=== PATIENT | female | born 1980 | race Caucasian/White ===

== ENCOUNTER 2020-04-02 18:24 | Emergency (ER) | payer SELFPAY ==
--- OUTSIDE RECORDS SUMMARY | 2020-04-02 18:25 | XMS REPORT | Continuity of Care Document ---
:1980 Author Organization [facility] t Address [address] [place] [address] Dr. Galloway. [address] [place] [address] Care Team Providers Name Role Phone Ewa Mcdonald DO Attending Clinician Problems This patient has no known problems. Allergies, Adverse Reactions, Alerts This patient has no known allergies or adverse reactions. Medications This patient has no known medications. Procedures This patient has no known procedures. Encounters Start End Encounter Admission Attending Care Care Encounter Source Date/Time Date/Time Type Type Clinicians Facility Department ID 2019-09-17 2019-09-17 Emergency TAVO Mcdonald [id number] 19:58:41 21:55:00 Ewa Clark [id number] [place] [id number] [place] [id number] [id number] Results This patient has no known results.
[2020-04-02 20:02] LABS: Absolute Lymphocytes (CBC) 2.1 K/uL (0.7-4.9); Basophils % 0.5 % (0-1.3); Hematocrit 33.5 % (36.0-45.0); Lymphocytes % 24.9 % (15.3-44.8); MPV 7.6 fL (7.6-11.3); RBC Red Blood Cell Count 4.22 M/uL (3.86-4.86)
[2020-04-02] MEDS ORDERED: NA CHLORIDE 0.9% 1,000 ML ONE (20:06)
[2020-04-02 20:07] LABS: Urine Blood NEGATIVE (NEG); Urine Glucose NEGATIVE (NEG); Urine Protein NEGATIVE (NEG); Urine Specific Gravity >1.030 (1.005-1.030); Urine pH 5.5 (5.0-7.0)
[2020-04-02 20:19] LABS: ALT/SGPT 21 U/L (12-78); AST/SGOT 8 U/L (15-37); Albumin 3.6 g/dL (3.4-5.0); Alkaline Phosphatase 145 U/L (45-117); BUN Blood Urea Nitrogen 12 mg/dL (7-18); Bicarbonate 25 mmol/L (21-32); Bilirubin Direct < 0.1 mg/dL (0-0.2); Bilirubin Total 0.3 mg/dL (0.2-1.0); Glucose Level 94 mg/dL (74-106); Lipase 69 U/L (73-393); Potassium 3.9 mmol/L (3.5-5.1); Protein, Total 7.4 g/dL (6.4-8.2); Sodium Level 139 mmol/L (136-145)
[2020-04-02 20:38] LABS: Urine Bacteria 20-50 /HPF (<20); Urine Culture Reflex Order REFLEXED; Urine Mucus MOD /HPF (NONE SEEN); Urine RBC NONE SEEN /HPF (NONE SEEN)
--- NOTE | 2020-04-02 21:18 | RAD REPORT ---
EXAM DESCRIPTION: CT - Abdomen Pelvis W Contrast - 04/02/2020 8:37 pm CLINICAL HISTORY: ABD PAIN, left flank pain COMPARISON: CT ABD PELVIS W CONTRAST dated 03/30/2010 TECHNIQUE: Biphasic, helical CT imaging of the abdomen and pelvis was performed following 100 ml non -ionic IV contrast. No oral contrast given. All CT scans are performed using dose optimization technique as appropriate and may include automated exposure control or mA/KV adjustment according to patient size. FINDINGS: No suspicious findings in the lung bases. The liver, spleen, and pancreas show no suspicious findings. Gallbladder and biliary tree are also wi thout suspicious finding. Symmetric renal function is seen with no hydronephrosis or suspicious renal mass. No pyelonephritis o r acute parenchymal process. No bladder abnormalities. No adrenal abnormalities. Contracted urinary b ladder shows no suspicious finding. Uterus and ovaries show no suspicious findings. No gastric dilatation or wall thickening. No acute small bowel finding. Appendectomy clips are presen t. A 4- 5 centimeter long segment of the descending colon shows wall thickening and edema. There is s tranding in the adjacent fat. Minimal diverticulosis present in the left side colon. No free air or pneumatosis. No extravasation of bowel content. No hernia, mass or bulky lymphadenopathy. No suspicious bony findings. IMPRESSION: Nonspecific descending colon colitis or diverticulitis. No abscess, free air or surgically emergent finding.
--- NOTE | 2020-04-02 21:48 | ER ---
Nurse's Notes [facility] Name: Shani Valente Age: 39 yrs Sex: Female : 1980 Arrival Date: 04/02/2020 Time: 18:27 Bed 5 Private MD: Diagnosis: Descending colon colitis/ diverticulitis Presentation: 04/02 18:48 Chief complaint: Patient states: left flank pain since yesterday radiating to iw suprapubic area, denies urinary s/s, pain aggravated by taking a deep breath , hx of kidney stones this feels different, +nausea, no vomiting or diarrhea. Coronavirus screen: At this time, the client does not indicate any symptoms associated with coronavirus-19. Ebola Screen: Patient negative for fever greater than or equal to 101.5 degrees Fahrenheit, and additional compatible Ebola Virus Disease symptoms Patient denies exposure to infectious person. Patient denies travel to an Ebola-affected area in the 21 days before illness onset. No symptoms or risks identified at this time. Initial Sepsis Screen: Does the patient meet any 2 criteria? No. Patient's initial sepsis screen is negative. Does the patient have a suspected source of infection? No. Patient's initial sepsis screen is negative. Risk Assessment: Do you want to hurt yourself or someone else? Patient reports no desire to harm self or others. Onset of symptoms was April 01, 2020. 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 - Social history:: Smoking status: Patient denies any tobacco usage or history of. Screenin:30 Abuse screen: Denies threats or abuse. Denies injuries from another. Nutritional lp1 screening: No deficits noted. Tuberculosis screening: No symptoms or risk factors identified. Fall Risk None identified. Assessment: 19:15 General: Appears in no apparent distress. Behavior is calm, cooperative, appropriate lp1 for age. Pain: Complains of pain in left lower quadrant Pain currently is 6 out of 10 on a pain scale. Quality of pain is described as aching, sharp. Neuro: Level of Consciousness is awake, alert, obeys commands, Oriented to person, place, time, situation. Cardiovascular: Patient's skin is warm and dry. Respiratory: Respiratory effort is even, unlabored, Breath sounds are clear bilaterally. GI: Abdomen is non-distended, Bowel sounds present X 4 quads. Abdomen is tender to palpation in left lower quadrant Patient currently denies constipation, diarrhea. : No signs and/or symptoms were reported regarding the genitourinary system. EENT: No signs and/or symptoms were reported regarding the EENT system. Derm: Skin is pink, warm \T\ dry. Musculoskeletal: No deficits noted. 21:59 Reassessment: Patient is alert, oriented x 3, equal unlabored respirations, skin bb warm/dry/pink. pt verbalized understanding of and agrees to plan of care discharge instructions given pt ambulated with steady gait to exit accompanied by family. Vital Signs: 18:48 BP 130 / 70; Pulse 97; Resp 16; Temp 98.6; Pulse Ox 100% on R/A; Weight 108.86 kg; iw Height 5 ft. 9 in. (175.26 cm); Pain 10/10; 22:01 BP 110 / 75; Pulse 80; Resp 18; Temp 98.5; Pulse Ox 100% ; rv 18:48 Body Mass Index 35.44 (108.86 kg, 175.26 cm) iw ED Course: 18:27 Patient arrived in ED. mr 18:50 Triage completed. iw 18:51 Arm band placed on. iw 19:08 Alex Lee MD is Attending Physician. pkl 19:23 Jacqueline Arredondo, YAEL is Primary Nurse. lp1 19:30 Patient has correct armband on for positive identification. Placed in gown. Pulse ox lp1 on. NIBP on. 19:45 Inserted saline lock: 20 gauge in left antecubital area, using aseptic technique. Blood lp1 collected. 21:59 No provider procedures requiring assistance completed. lp1 22:01 IV discontinued, intact, bleeding controlled, No redness/swelling at site. Pressure bb dressing applied. Administered Medications: 19:56 Drug: NS 0.9% 1000 ml Route: IV; Rate: 1000 ml; Site: left antecubital; lp1 21:59 Follow up: IV Status: Completed infusion; IV Intake: 1000ml rv 21:56 Drug: Cipro 500 mg Route: PO; bb 22:00 Follow up: Response: Medication administered at discharge. rv 21:56 Drug: Flagyl 500 mg Route: PO; bb 22:00 Follow up: Response: Medication administered at discharge. rv 22:00 Not Given (Patient Refused): morphine 4 mg IVP once; RASS on ADMIN: Combtv4, Very rv Agttd3, Agttd2, Rstlss1, AlertClm0, Drwsy-1, Lt Sdtn-2, Mod Sdtn-3, Dp Sdtn-4, UnArsble-5 22:00 Not Given (Patient Refused): Zofran (Ondansetron) 4 mg IVP once; over 2 minutes rv Intake: 21:59 IV: 1000ml; Total: 1000ml. rv Outcome: 21:48 Discharge ordered by . pkcinthia 22:00 Discharged to home ambulatory, with family. rv 22:00 Condition: good 22:01 Discharge instructions given to patient, Instructed on discharge instructions, follow bb up and referral plans. medication usage, Demonstrated understanding of instructions, follow-up care, medications, Prescriptions given X 2. 22:01 Discharge instructions given to patient, Instructed on discharge instructions, follow rv up and referral plans. medication usage, Demonstrated understanding of instructions, follow-up care, medications, Prescriptions given X 2. 22:01 Patient left the ED. bb Signatures: Alex Lee MD MD pkl Rivera, Mary mr Ballard, Brenda RN RN bb Mima Mcdonald, YAEL CONLEY Jacqueline Arredondo, YAEL RN lp1 Sony Ernandez RN RN rv
--- NOTE | 2020-04-02 21:48 | EDPHYS ---
Physician Documentation [facility] Name: Shani Valente Age: 39 yrs Sex: Female : 1980 Arrival Date: 04/02/2020 Time: 18:27 Bed 5 Private MD: ED Physician Alex Lee HPI: 04/02 19:42 This 39 yrs old Female presents to ER via Ambulatory with complaints of pkl Abdominal Pain. 19:42 The patient presents with abdominal pain in the left upper quadrant. Onset: The pkl symptoms/episode began/occurred yesterday. The symptoms radiate to Umbilicus. Associated signs and symptoms: Pertinent positives: nausea. 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 - Social history:: Smoking status: Patient denies any tobacco usage or history of. ROS: 19:42 Eyes: Negative for injury, pain, redness, and discharge, ENT: Negative for injury, pkl pain, and discharge, Neck: Negative for injury, pain, and swelling, Cardiovascular: Negative for chest pain, palpitations, and edema, Respiratory: Negative for shortness of breath, cough, wheezing, and pleuritic chest pain. 19:42 Abdomen/GI: Positive for abdominal pain, of the left upper quadrant. 19:42 Back: Negative for pain at rest. 19:42 : Negative for urinary symptoms. 19:42 MS/extremity: Negative for acute changes. 19:42 Skin: Negative for rash. 19:42 Neuro: Negative for altered mental status. Exam: 19:42 Head/Face: Normocephalic, atraumatic. Eyes: Pupils equal round and reactive to light, pkl extra-ocular motions intact. Lids and lashes normal. Conjunctiva and sclera are non-icteric and not injected. Cornea within normal limits. Periorbital areas with no swelling, redness, or edema. ENT: Nares patent. No nasal discharge, no septal abnormalities noted. Tympanic membranes are normal and external auditory canals are clear. Oropharynx with no redness, swelling, or masses, exudates, or evidence of obstruction, uvula midline. Mucous membranes moist. Neck: Trachea midline, no thyromegaly or masses palpated, and no cervical lymphadenopathy. Supple, full range of motion without nuchal rigidity, or vertebral point tenderness. No Meningismus. Chest/axilla: Normal chest wall appearance and motion. Nontender with no deformity. No lesions are appreciated. Cardiovascular: Regular rate and rhythm with a normal S1 and S2. No gallops, murmurs, or rubs. Normal PMI, no JVD. No pulse deficits. Respiratory: Lungs have equal breath sounds bilaterally, clear to auscultation and percussion. No rales, rhonchi or wheezes noted. No increased work of breathing, no retractions or nasal flaring. 19:42 Abdomen/GI: Bowel sounds: normal, Palpation: soft, mild abdominal tenderness, in the left upper quadrant. 19:42 Back: Exam negative for acute changes. 19:42 : Exam negative for acute changes. 19:42 Musculoskeletal/extremity: Exam is negative for acute changes. 19:42 Skin: Exam negative for rash. 19:42 Neuro: Orientation: is normal, Mentation: is normal, Cranial nerves: grossly normal, Motor: is normal. Vital Signs: 18:48 BP 130 / 70; Pulse 97; Resp 16; Temp 98.6; Pulse Ox 100% on R/A; Weight 108.86 kg; iw Height 5 ft. 9 in. (175.26 cm); Pain 10/10; 22:01 BP 110 / 75; Pulse 80; Resp 18; Temp 98.5; Pulse Ox 100% ; rv 18:48 Body Mass Index 35.44 (108.86 kg, 175.26 cm) iw MDM: 19:08 Patient medically screened. pkl 21:43 Data reviewed: vital signs, nurses notes, lab test result(s), radiologic studies, CT pkl scan. ED course: Discussed lab. and CT Scan results with patient. Advised to follow up with [facility] in 2 to 3 days. Return if symptoms are worse. Patient understood instructions. 04/02 19:34 Order name: Urine Culture [facility] 04/02 19:34 Order name: Urine Dipstick--Ancillary (enter results) [facility] 04/02 19:34 Order name: Urine --Ancillary (enter results) 2 04/02 19:34 Order name: Urine Microscopic Only 2 04/02 19:40 Order name: Basic Metabolic Panel [facility] 04/02 19:40 Order name: CBC with Diff pk 04/02 19:40 Order name: Hepatic Function pk 04/02 19:40 Order name: Lipase pk 04/02 20:04 Order name: CBC with Automated Diff; Complete Time: 21:13 EDMS 04/02 20:07 Order name: Urine --Ancillary; Complete Time: 21:13 EDMS 04/02 20:07 Order name: Urine Dipstick-Ancillary; Complete Time: 21:13 EDMS 04/02 20:19 Order name: Basic Metabolic Panel; Complete Time: 21:13 EDMS 04/02 20:19 Order name: Liver (Hepatic) Function; Complete Time: 21:13 EDMS 04/02 20:19 Order name: Lipase; Complete Time: 21:13 EDMS 04/02 19:27 Order name: Urine Dipstick-Ancillary (obtain specimen); Complete Time: 19:38 1 04/02 19:27 Order name: Urine Test (obtain specimen); Complete Time: 19:38 1 04/02 19:40 Order name: IV Saline Lock; Complete Time: 19:56 pk 04/02 19:40 Order name: Labs collected and sent; Complete Time: 19:56 [facility] 04/02 19:41 Order name: CT Abd/Pelvis - IV Contrast Only [facility] 04/02 20:39 Order name: Urine Microscopic Only; Complete Time: 21:13 EDMS 04/02 21:19 Order name: CT; Complete Time: 21:37 EDMS Administered Medications: 19:56 Drug: NS 0.9% 1000 ml Route: IV; Rate: 1000 ml; Site: left antecubital; lp1 21:59 Follow up: IV Status: Completed infusion; IV Intake: 1000ml rv 21:56 Drug: Cipro 500 mg Route: PO; bb 22:00 Follow up: Response: Medication administered at discharge. rv 21:56 Drug: Flagyl 500 mg Route: PO; bb 22:00 Follow up: Response: Medication administered at discharge. rv 22:00 Not Given (Patient Refused): morphine 4 mg IVP once; RASS on ADMIN: Combtv4, Very rv Agttd3, Agttd2, Rstlss1, AlertClm0, Drwsy-1, Lt Sdtn-2, Mod Sdtn-3, Dp Sdtn-4, UnArsble-5 22:00 Not Given (Patient Refused): Zofran (Ondansetron) 4 mg IVP once; over 2 minutes rv Disposition: 04/02/20 21:48 Discharged to Home. Impression: Descending colon colitis/ diverticulitis. - Condition is Stable. - Prescriptions for Flagyl 500 mg Oral Tablet - take 1 tablet by ORAL route every 8 hours for 10 days; 30 tablet. Cipro 500 mg Oral Tablet - take 1 tablet by ORAL route every 12 hours for 7 days; 14 tablet. - Medication Reconciliation Form, Thank You Letter, Antibiotic Education, Prescription Opioid Use form. - Follow up: Private Physician; When: 2 - 3 days; Reason: Re-evaluation by your physician. - Problem is new. - Symptoms have improved. Signatures: Dispatcher [employer] EDMS Alex Lee MD MD pkl Liv De Paz RN RN Mima Pastrana RN RN iw Jacqueline Arredondo RN RN lp1 Sony Ernandez RN rv Corrections: (The following items were deleted from the chart) 22:01 21:48 04/02/2020 21:48 Discharged to Home. Impression: Descending colon colitis/ bb diverticulitis. Condition is Stable. Forms are Medication Reconciliation Form, Thank You Letter, Antibiotic Education, Prescription Opioid Use. Follow up: Private Physician; When: 2 - 3 days; Reason: Re-evaluation by your physician. Problem is new. Symptoms have improved. pkl
[2020-04-02] MEDS ORDERED: metroNIDAZOLE 500 MG TABLET ONE (22:10)
[2020-04-02] MEDS ORDERED: CIPROFLOXACIN HCL 500 MG TAB ONE (22:11)
[2020-04-02 22:16] VITALS: O2SAT 100
[2020-04-02 22:18] VITALS: BP 110/75; TEMP 98.5
== END 2020-04-02 22:01 | disposition home or self-care (01) ==
LOC: ER 18:24
DX: K52.9 Noninfective gastroenteritis and colitis, unspecified (principal); K57.32 Diverticulitis of large intestine without perforation or abscess without bleeding; G40.909 Epilepsy, unspecified, not intractable, without status epilepticus
CPT/HCPCS: 36415; 74177; 80048; 80076; 81003; 81015; 81025; 83690; 85025; 87086; 87088; 96360; 96361; 99284; J7030; Q9967

== ENCOUNTER 2021-03-05 07:16 | Emergency (ER) | payer SELFPAY ==
--- OUTSIDE RECORDS SUMMARY | 2021-03-05 07:19 | XMS REPORT | Continuity of Care Document ---
:1980 Author Organization [facility] t Address [address] [place] [address] Dr. Galloway. [address] [place] [address] Care Team Providers Name Role Phone Clark Mcdonald DO Attending Clinician Problems This patient has no known problems. Allergies, Adverse Reactions, Alerts This patient has no known allergies or adverse reactions. Medications This patient has no known medications. Procedures This patient has no known procedures. Encounters Start End Encounter Admission Attending Care Care Encounter Source Date/Time Date/Time Type Type Clinicians Facility Department ID 2019-09-17 2019-09-17 Emergency [facility] [id number] 19:58:41 21:55:00 Ewa Clark [id number] [place] [id number] [place] [id number] Results This patient has no known results.
--- NOTE | 2021-03-05 11:53 | EDPHYS ---
Physician Documentation [facility] Name: Shani Valente Age: 40 yrs Sex: Female : 1980 Arrival Date: 03/05/2021 Time: 07:17 Bed 12 Private MD: Luis Enrique Arce T ED Physician Evan Barraza HPI: 03/05 11:47 This 40 yrs old Female presents to ER via Ambulatory with complaints of taisha Headache, Dizziness, Sore Throat, Runny Nose. 11:47 The patient complains of pain to the top of head, forehead, left frontal area, left taisha side of the back of head, left occipital area, left base of the skull, right frontal area, right side of the back of head, right occipital area and right base of the skull. The patient describes the headache as aching. Onset: The symptoms/episode began/occurred 2 day(s) ago. Associated signs and symptoms: The patient has no apparent associated signs or symptoms. Severity of symptoms: At its worst the pain was mild. Headache History: The patient has had previous headaches and this one is similar to previous episodes. [employer]: 09:45 1, Full Term 1, Living 1, LMP 03/05/2021 kh Historical: - Allergies: 07:38 No Known Allergies; hb - Home Meds: 07:38 Lamictal 200 mg Oral tab 2 times per day [Active]; hb - PMHx: 07:38 Seizures; hb - Immunization history:: Adult Immunizations up to date. - Social history:: Patient/guardian denies using alcohol, street drugs. ROS: 11:49 Constitutional: Negative for fever, chills, and weight loss, Eyes: Negative for injury, taisha pain, redness, and discharge, Neck: Negative for injury, pain, and swelling, Cardiovascular: Negative for chest pain, palpitations, and edema, Respiratory: Negative for shortness of breath, cough, wheezing, and pleuritic chest pain, Abdomen/GI: Negative for abdominal pain, nausea, vomiting, diarrhea, and constipation, Back: Negative for injury and pain, : Negative for injury, bleeding, discharge, and swelling, MS/Extremity: Negative for injury and deformity, Skin: Negative for injury, rash, and discoloration, Neuro: Negative for headache, weakness, numbness, tingling, and seizure. 11:49 ENT: Positive for rhinorrhea, sinus congestion, sore throat. Exam: 11:49 Constitutional: This is a well developed, well nourished patient who is awake, alert, taisha and in no acute distress. Head/Face: Normocephalic, atraumatic. Eyes: Pupils equal round and reactive to light, extra-ocular motions intact. Lids and lashes normal. Conjunctiva and sclera are non-icteric and not injected. Cornea within normal limits. Periorbital areas with no swelling, redness, or edema. Neck: Trachea midline, no thyromegaly or masses palpated, and no cervical lymphadenopathy. Supple, full range of motion without nuchal rigidity, or vertebral point tenderness. No Meningismus. Chest/axilla: Normal chest wall appearance and motion. Nontender with no deformity. No lesions are appreciated. Cardiovascular: Regular rate and rhythm with a normal S1 and S2. No gallops, murmurs, or rubs. Normal PMI, no JVD. No pulse deficits. Respiratory: Lungs have equal breath sounds bilaterally, clear to auscultation and percussion. No rales, rhonchi or wheezes noted. No increased work of breathing, no retractions or nasal flaring. Abdomen/GI: Soft, non-tender, with normal bowel sounds. No distension or tympany. No guarding or rebound. No evidence of tenderness throughout. Back: No spinal tenderness. No costovertebral tenderness. Full range of motion. Skin: Warm, dry with normal turgor. Normal color with no rashes, no lesions, and no evidence of cellulitis. MS/ Extremity: Pulses equal, no cyanosis. Neurovascular intact. Full, normal range of motion. Neuro: Awake and alert, GCS 15, oriented to person, place, time, and situation. Cranial nerves II-XII grossly intact. Motor strength 5/5 in all extremities. Sensory grossly intact. Cerebellar exam normal. Normal gait. 11:49 ENT: Posterior pharynx: Tonsils: are normal in appearance, Uvula: normal, swelling, is not appreciated, erythema, that is mild, exudate, is not appreciated. Vital Signs: 07:36 BP 141 / 94; Pulse 92; Resp 16; Temp 98.2; Pulse Ox 99% on R/A; Weight 106.59 kg; hb Height 5 ft. 9 in. (175.26 cm); Pain 8/10; 09:45 BP 111 / 68; Pulse 83; Resp 20; Temp 98.9(TE); Pulse Ox 96% on R/A; kh1 12:50 BP 136 / 84; Pulse 69; Resp 20; Temp 97.1; Pulse Ox 98% on R/A; kh1 07:36 Body Mass Index 34.70 (106.59 kg, 175.26 cm) hb Devna Coma Score: 11:50 Eye Response: spontaneous(4). Verbal Response: oriented(5). Motor Response: obeys [facility] commands(6). Total: 15. MDM: 09:45 Patient medically screened. taisha 11:50 Antibiotic administration: The patient is discharged and will get outpatient [facility] antibiotics, Zithromax. Differential diagnosis: bronchitis, flu, otitis, sinusitis. Data reviewed: vital signs, nurses notes, lab test result(s). Data interpreted: monitor and storage bin tender: rate is 96 beats/min, rhythm is regular, Pulse oximetry: on room air. Test interpretation: by ED physician or midlevel provider:. Counseling: I had a detailed discussion with the patient and/or guardian regarding: the historical points, exam findings, and any diagnostic results supporting the discharge/admit diagnosis, lab results. 03/05 11:41 Order name: Flu [facility] 03/05 11:41 Order name: Strep [facility] 03/05 13:00 Order name: Throat Culture EDND 03/05 13:24 Order name: COVID-19/FLU A+B ED[facility] Administered Medications: 12:45 Drug: predniSONE 40 mg Route: PO; kh1 12:53 Drug: Zithromax (azithromycin) 500 mg Route: PO; kh1 Disposition Summary: 03/05/21 11:52 Discharge Ordered Location: Home [facility] Problem: new [facility] Symptoms: have improved taisha Condition: Stable taisha Diagnosis - Acute upper respiratory infection, unspecified taisha - Acute pharyngitis, unspecified taisha Followup: taisha - With: Luis Enrique Arce MD - When: 2 - 3 days - Reason: Recheck today's complaints, Continuance of care, Re-evaluation by your physician Discharge Instructions: - Discharge Summary Sheet taisha - Pharyngitis taisha - Sore Throat taisha - Strep Throat, Adult taisha - Cool Mist Vaporizer taisha - Upper Respiratory Infection, Adult, [id number] taisha - Cough, Adult [facility] Forms: - Medication Reconciliation Form [facility] - Thank You Letter taisha - Antibiotic Education [facility] - Prescription Opioid Use [facility] Prescriptions: - Prednisone 20 mg Oral Tablet - take 2 tablets by ORAL route once daily for 5 days; 10 tablet; Refills: 0, [facility] Product Selection Permitted - Zithromax 500 mg Oral Tablet - take 1 tablet by ORAL route once daily for 4 days; 4 tablet; Refills: 0, [facility] Product Selection Permitted Signatures: Dispatcher [employer] EDMS Evan Barraza MD MD cha Baxter, Heather, RN RN Maribell Gaviria 1 Corrections: (The following items were deleted from the chart) 12:24 11:42 CORONAVIRUS+MR.LAB.BRZ ordered. EDMS EDMS 12:25 11:42 Influenza Screen (A ordered. EDMS EDMS
--- NOTE | 2021-03-05 11:53 | ER ---
Nurse's Notes [facility] Name: Shani Valente Age: 40 yrs Sex: Female : 1980 Arrival Date: 03/05/2021 Time: 07:17 Bed 12 Private MD: Luis Enrique Arce T Diagnosis: Acute upper respiratory infection, unspecified;Acute pharyngitis, unspecified Presentation: 03/05 07:36 Chief complaint: Runny nose, headache, fatigue, decreased appetite, body, dizziness, hb and cough x 3 days. Coronavirus screen: Client presents with at least one sign or symptom that may indicate coronavirus-19. Standard/surgical mask placed on the client. Provider contacted for isolation considerations. Ebola Screen: No symptoms or risks identified at this time. Risk Assessment: Do you want to hurt yourself or someone else? Patient reports no desire to harm self or others. Onset of symptoms was March 02, 2021. 07:36 Method Of Arrival: Ambulatory 07:36 Acuity: YOBANY 4 hb Triage Assessment: 09:43 Headache History: Denies prior headaches. General: Appears in no apparent distress. kh1 comfortable, Behavior is calm, cooperative. Pain: Complains of pain in pelvis Pain currently is 8 out of 10 on a pain scale. Quality of pain is described as Pain began gradually, Also complains of no other associated symptoms. Neuro: No deficits noted. 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 - Social history:: Patient/guardian denies using alcohol, street drugs. Screenin:48 Abuse screen: Denies threats or abuse. Nutritional screening: No deficits noted. kh1 Tuberculosis screening: No symptoms or risk factors identified. Fall Risk None identified. Assessment: 09:47 Pain: Complains of pain in abdomen Pain does not radiate. Pain currently is 8 out of 10 kh1 on a pain scale. 12:51 General: Appears in no apparent distress. [facility] 12:52 Neuro: No deficits noted. Cardiovascular: No deficits noted. Respiratory: No deficits kh1 noted. GI: No deficits noted. : No deficits noted. Vital Signs: 07:36 BP 141 / 94; Pulse 92; Resp 16; Temp 98.2; Pulse Ox 99% on R/A; Weight 106.59 kg; hb Height 5 ft. 9 in. (175.26 cm); Pain 8/10; 09:45 BP 111 / 68; Pulse 83; Resp 20; Temp 98.9(TE); Pulse Ox 96% on R/A; kh1 12:50 BP 136 / 84; Pulse 69; Resp 20; Temp 97.1; Pulse Ox 98% on R/A; kh1 07:36 Body Mass Index 34.70 (106.59 kg, 175.26 cm) hb Vitals: 12:50 Cardiac Rhythm Assessment Regular. kh1 Devan Coma Score: 11:50 Eye Response: spontaneous(4). Verbal Response: oriented(5). Motor Response: obeys taisha commands(6). Total: 15. ED Course: 07:17 Patient arrived in ED. as 07:17 Luis Enrique Arce MD is Private Physician. as 07:38 Triage completed. 09:43 Maribell Gaviria is Primary Nurse. kh1 09:45 Evan Barraza MD is Attending Physician. taisha 09:45 Arm band placed on right wrist. kh1 11:52 Luis Enrique Arce MD is Referral Physician. taisha 12:01 Flu Sent. 1 12:01 Strep Sent. 1 Administered Medications: 12:45 Drug: predniSONE 40 mg Route: PO; 1 12:53 Drug: Zithromax (azithromycin) 500 mg Route: PO; 1 Outcome: 11:52 Discharge ordered by . taisha 13:36 Patient left the ED. iw Signatures: Evan Barraza MD MD cha Martinez, Amelia as Mima Mcdonald RN RN Mariza Saba RN RN Maribell Gaviria [facility] Corrections: (The following items were deleted from the chart) 12:24 12:01 CORONAVIRUS+MR.LAB.BRZ drawn and sent. [facility] EDMS 12:25 12:01 Influenza Screen (A drawn and sent. [facility] EDMS
[2021-03-05] MEDS ORDERED: AZITHROMYCIN 250 MG TAB ONE (12:30)
[2021-03-05] MEDS ORDERED: predniSONE 20 MG TAB ONE (12:31)
[2021-03-05 13:24] LABS: SARS-COV-2 RT PCR NEGATIVE (NEGATIVE)
[2021-03-05 13:44] VITALS: BP 136/84; TEMP 97.1; O2SAT 98
== END 2021-03-05 13:36 | disposition home or self-care (01) ==
LOC: ER 07:16
DX: J06.9 Acute upper respiratory infection, unspecified (principal); J02.9 Acute pharyngitis, unspecified; Z20.822 Contact with and (suspected) exposure to COVID-19
CPT/HCPCS: 0240U; 87070; 87081; 99283; J7512

== ENCOUNTER 2021-12-19 07:09 | Emergency (ER) | payer SELFPAY ==
--- OUTSIDE RECORDS SUMMARY | 2021-12-19 07:13 | XMS REPORT | Continuity of Care Document ---
:1980 Author Organization [facility] t Address [address] [place] [address] [address] [place] [address] Care Team Providers Name Role Phone Clark Reed DO Attending Clinician Payers Payer Name Policy Type Policy Number Effective Date Expiration Date S ource Problems Condition Condition Condition Status Onset Resolution Last Treating Co mments Source Name Details Category Date Date Treatment Clinician Date Obesity Obesity Disease Active 2015-07 Univers (BMI (BMI 2-02 ity of 30-39.9) 30-39.9) 00:00: [address] Branch Allergies, Adverse Reactions, Alerts Allergy Allergy Status Severity Reaction(s) Onset Inactive Treating Comm ents Source Name Type Date Date Clinician NO KNOWN Drug Active Univers ALLERGIE Class ity of [facility] Social History Social Habit Start Date Stop Date Quantity Comments [facility] Smoking Status Start Date Stop Date Source Unknown if ever smoked [facility]it y [facility] Medications Ordered Filled Start Stop Current Ordering Indication Dosage Frequency Signature Comments Components Source Medication Medication Date Date Medication? Clinician (SIG) Name Name diphenhydrA 2020-0 2020- No 25mg 25 mg, Uni vers MINE 3-14 -14 Slow IV ity of (BENADRYL) 02:45: 01:45 [place], [place] injection 00 :00 ONCE, 1 Medical 25 mg dose, Fri Branch 09/17/19 at 2145, STAT metoclopram 2020-0 2020- No 10mg 10 mg, Uni vers luciano HCl 3-14 -14 Slow IV ity of (REGLAN) 02:15: 01:37 Push, [place] injection 00 :00 ONCE, 1 Medical 10 mg dose, Fri Branch 09/17/19 at 2115, AI ketorolac 2020- No 30mg 30 mg, Unive rs (TORADOL) 09-17 Slow IV ity of injection 01:45: 01:45 [place], [place] 30 mg 00 :00 ONCE, 1 Medical dose, Fri Branch 09/17/19 at 2045, AI
Fa culty member approving Restricted medication : EWA REED metoclopram Yes [id number] 10mg Take 1 Univers luciano HCl 10 3-13 tablet by ity of mg tablet 00:00: mouth [place] 00 every 6 Medical (six) Branch hours as needed for Nausea and Vomiting (N/V). hydrOXYzine 2016-07 Yes 10mg Take 1 Univ ers 10 mg 2-11 tablet by ity of tablet 00:00: mouth [place] 00 every 6 Medical (six) Branch hours as needed for Itching. naproxen 2016-07 Yes 550mg Take 1 Univer s sodium 2-11 tablet by ity of (ANAPROX 00:00: mouth 2 [place] DS) 550 mg 00 (two) Medical tablet times Branch daily with meals. maalox/diph Yes 10mL Take 10 mL Univers enhydrAMINE 4-08 by mouth 4 it y of :lidocaine2 00:00: (four[place] % viscous 00 times Medical 1:1:1 Susp daily as Branc h suspension needed for Oral mucositis. Rinse and Spit before meals and bedtime. proMETHazin Yes 25mg Take 1 Univ ers e 25 mg 4-08 tablet by ity of tablet 00:00: mouth [place] 00 every 6 Medical (six) Branch hours as needed for Nausea and Vomiting (N/V). Vital Signs Vital Name Observation Time Observation Value Comments Source Systolic blood 2019-09-18 01:05:00 146 mm[Hg] Univer sity of pressure [facility] Diastolic blood 2019-09-18 01:05:00 102 mm[Hg] [facility] Heart rate 2019-09-18 01:05:00 97 /min [facility] [place] [facility] Body temperature 2019-09-18 01:05:00 37.17 Azucena [facility] rate 2019-09-18 01:05:00 12 /min [facility] Body height 2019-09-18 01:05:00 167.6 cm Universi ty of [facility] Body weight 2019-09-18 01:05:00 102.059 kg Universi ty of [facility] BMI 2019-09-18 01:05:00 36.32 kg/m2 Universi ty [facility] Oxygen saturation in 2019-09-18 01:05:00 97 /min University of Arterial blood by [facility] Pulse oximetry Branch Systolic blood 2019-09-18 01:05:00 146 mm[Hg] Univer sity of pressure [facility] Diastolic blood 2019-09-18 01:05:00 102 mm[Hg] [facility] Heart rate 2019-09-18 01:05:00 97 /min Universi ty [facility] Body temperature 2019-09-18 01:05:00 37.17 Azucena [facility] Respiratory rate 2019-09-18 01:05:00 12 /min [facility] Body height 2019-09-18 01:05:00 167.6 cm Universi ty of [facility] Body weight 2019-09-18 01:05:[address] [facility] BMI 2019-09-18 01:05:00 36.32 kg/m2 Universi ty [facility] Oxygen saturation in 2019-09-18 01:05:00 97 /min University of Arterial blood by [facility] Pulse oximetry [place] Procedures Procedure Date / Time Performing Clinician Source Performed POCT TEST 2019-09-18 01:35:00 Ewa Reed [facility] LIPASE 2019-09-18 01:32:00 Ewa Reed [facility] HEPATIC FUNCTION PANEL 2019-09-18 01:32:00 Ewa Reed [facility] ([id number]) (ALB,T.PRO,BILI [facility] Branch T,BU/BC,ALT,AST,ALK PHOS) BASIC METABOLIC PANEL 2019-09-18 01:32:00 Ewa Reed [facility] (NA, K, CL, CO2, Medical Branch GLUCOSE, BUN, CREATININE, CA) CBC WITH DIFFERENTIAL 2019-09-18 01:32:00 Ewa Reed [facility] URINALYSIS 2019-09-18 01:32:00 Ewa [address] [facility] CONSENT/REFUSAL FOR 2019-09-18 00:55:05 [facility]assigned, [facility] NOTICE OF PRIVACY 2019-09-18 00:54:51 Doctor Unassigned, No [facility] Encounters Start End Encounter Admission Attending Care Care Encounter Source Date/Time Date/Time Type Type Clinicians Facility Department ID 2019-09-17 2019-09-17 [facility] [id number] Univers 19:58:41 21:55:00 Ewa Clark [id number] [facility] [id number] [facility] [id number] [place] [address] Branch 2019-09-17 2019-09-17 Emergency [facility] [id number] 19:58:41 21:55:00 Ewa Clark [id number] [place] [id number] [place] [id number] [facility] 2019-09-17 2019-09-17 Emergency X [facility] ERT [id number] Univers 19:53:00 19:53:00 [facility] Results Test Description Test Time Test Comments Results Result Comments Source Hepatic Function Panel (ALB, T.PRO, BILI T, BU/BC, ALT , AST, 2019-09-18 02:01:00 ALK PHOS) Test Item Value Reference Range Interpretation Comme nts TOTAL BILI (test code = 9569093906) 0.2 mg/dL 0.1-1.1 BILI UNCON (test code = 2056334027) 0.0 mg/dL 0.1-1.1 L BILI CONJ (test code = 0689168753) 0.0 mg/dL 0-0.3 T PROTEIN (test code = 7401243199) 7.2 g/dL 6.3-8.2 ALBUMIN (test code = 2678165556) 4.4 g/dL 3.5-5 ALK PHOS (test code = 0612767447) 104 U/L 34-122 ALTv (test code = 1742-6) 20 U/L 5-35 AST(SGOT) (test code = 1618864819) 26 U/L 13-40 Lab Interpretation (test code = 59266-4) Abnormal [facility] Metabolic Panel (NA, K, CL, CO2, GLUCOSE, BUN, CREATININE, CA)2019-09-18 02:00:00 Test Item Value Reference Range Interpretation Comments NA (test code = 137 mmol/L 135-145 4267916011) K (test code = 4.4 mmol/L 3.5-5 2226222511) CL (test code = 104 mmol/L 98-108 6078688331) CO2 TOTAL (test code = 25 mmol/L 23-31 7573853659) AGAP (test code = 2-16 5360990526) BUN (test code = 13 mg/dL 7-23 8172901485) GLUCOSE (test code = 105 mg/dL 70-110 1666042407) CREATININE (test code 0.96 mg/dL 0.5-1.04 = 6274850099) CALCIUM (test code = 9.0 mg/dL 8.6-10.6 1043897329) eGFR Calculation mL/min/1.73m2 (Non-) (test code = 4527319772) eGFR Calculation mL/min/1.73m2 () (test code = 3572519454) DUANE (test code = DUANE) Association of Glomerular Filtration Rate (GFR) and Staging of Kidney Disease* + -+ + ---+| GFR (mL/min/1.73 m2) ?| With Kidney Damage ?| ?Without Kidney Damage+ -------+ ------+ ---------+| ?>90 ?| ?Stage one ?| ? Normal ?+ --+ -+ ----+| ?60-89 ?| ?Stage two ?| ? Decreased GFR ? + -+ + ---+| ?30-59 ?| ?Stage three ?| ? Stage three ? + -+ + ---+| ?15-29 ?| ?Stage four ? | ? Stage four ?+ --+ -+ ----+| ?<15 (or dialysis) ? ?| ?Stage five ? | ? Stage five ?+ --+ -+ ----+ *Each stage assumes the associated GFR level has been in effect for at least three months. ?Stages 1 to 5, with or without kidney disease, indicate chronic kidney disease. Notes: Determination of stages one and two (with eGFR >59mL/min/1.73 m2) requires estimation of kidney damage for at least three months as defined by structural or functional abnormalities of the kidney, manifested by either:Pathological abnormalities or Markers of kidney damage (including abnormalities in the composition of the blood or urine or abnormalities in imaging tests). [facility] [id number] 02:00:00 Test Item Value Reference Range Interpretation Comments LIPASE (test code = 5647116121) 42 U/L 0-220 Lab Interpretation (test code = Normal 30378-3) [facility] Center[facility]ysis2020-[facility]-14 01:50:00 Test Item Value Reference Range Interpretation Comments APPEARANCE (test code = Hazy Clear A 5568962233) COLOR (test code = Yellow Yellow 0267619792) PH (test code = 4.8-8.0 2845550955) SP GRAVITY (test code = 1.003-1.030 1216025616) GLU U QUAL (test code = Normal Normal 4423413054) BLOOD (test code = Negative Negative 8943866081) KETONES (test code = Negative Negative 1147313983) PROTEIN (test code = Negative Negative 2887-8) UROBILIN (test code = 2.0 mg/dL Normal A 7691310171) BILIRUBIN (test code = Negative Negative 7956675271) NITRITE (test code = Negative Negative 1178293766) LEUK CHANG (test code = Negative Negative 7750829737) RBC/HPF (test code = See_Comment [Autom ated message] 6877569201) The system Dapt generated this result transmit leyla reference range : 0 - 3 HPF. The refe rence range was not u sed to interpret th is result as normal/abnormal . WBC/HPF (test code = See_Comment [Autom ated message] 7839177048) The system Dapt generated this result transmit leyla reference range : 0 - 5 HPF. The refe rence range was not u sed to interpret th is result as normal/abnormal . BACTERIA (test code = Negative Negative 0942577717) MUCOUS (test code = Slight Negative LPF A 7525701593) SQ EPITH (test code = HPF 6803650855) Lab Interpretation (test Abnormal code = 66961-1) [facility] WITH [id number] 01:43:00 Test Item Value Reference Range Interpretation Comments WBC (test code = See_Comment [Automated 6690-2) message] The sy stem which generated this result transmitted reference range : 4.30 - 11.10 10*3/?L. The reference range was not used to interpret this result as normal/abnormal . RBC (test code = See_Comment [Automated 789-8) message] The sy stem which generated this result transmitted reference range : 3.93 - 5.25 10*6/?L. The reference range was not used to interpret this result as normal/abnormal . HGB (test code = 10.4 g/dL 11.6-15 L 718-7) HCT (test code = 34.0 % 35.7-45.2 L 4544-3) MCV (test code = 82.9 fL 80.6-95.5 787-2) MCH (test code = 25.4 pg 25.9-32.8 L 785-6) MCHC (test code = 30.6 g/dL 31.6-35.1 L 786-4) RDW-SD (test code = 47.3 fL 39-49.9 09522-1) RDW-CV (test code = 15.7 % 12-15.5 H 788-0) PLT (test code = See_Comment H [Automated 777-3) message] The sy stem which generated this result transmitted reference range : 166 - 358 10*3/ ?L. The reference r graeme was not used to interpret this result as normal/abnormal . MPV (test code = 9.1 fL 9.5-12.9 L 09210-8) NRBC/100 WBC (test See_Comment [Automat ed code = 6526241698) message] The system which generated this result transmitted reference range : 0.0 - 10.0 /100 WBCs. The refer ence range was not u sed to interpret th is result as normal/abnormal . NRBC x10^3 (test code <0.01 See_Comment [Auto mated = 9065183467) message] The s ystem which generated this result transmitted reference range : 10*3/?L. The reference range was not used to interpret this result as normal/abnormal . GRAN MAT (NEUT) % 65.6 % (test code = 770-8) IMM GRAN % (test code 0.60 % = 9865349466) LYMPH % (test code = 25.3 % 736-9) MONO % (test code = 6.1 % 5905-5) EOS % (test code = 1.8 % 713-8) BASO % (test code = 0.6 % 706-2) GRAN MAT x10^3(ANC) 6.05 10*3/uL 1.88-7.09 (test code = 0088005837) IMM GRAN x10^3 (test 0.06 10*3/uL 0-0.06 code = 1427561701) LYMPH x10^3 (test code 2.34 10*3/uL 1.32-3.29 = 731-0) MONO x10^3 (test code 0.56 10*3/uL 0.33-0.92 = 742-7) EOS x10^3 (test code = 0.17 10*3/uL 0.03-0.39 711-2) BASO x10^3 (test code 0.06 10*3/uL 0.01-0.07 = 704-7) Lab Interpretation Abnormal (test code = 70530-8) [facility] Test, [id number] 01:35:00 Test Item Value Reference Range Interpretation Comments POCT PREG (test code = 1605) negative On board controls acceptable with positive C Line (test code = 3574) POCT PREG LOT # (test code = 3575) [id number] POCT PREG TEST DATE (test 02-03-2021 code = 3576) Lab Interpretation (test code = Normal 31198-6) [facility]"
[2021-12-19 08:03] LABS: Absolute Lymphocytes (CBC) 1.5 K/uL (0.7-4.9); Hematocrit 30.3 % (36.0-45.0); Lymphocytes % 20.1 % (15.3-44.8); MPV 7.2 fL (7.6-11.3); RBC Red Blood Cell Count 4.07 M/uL (3.86-4.86)
[2021-12-19] MEDS ORDERED: NA CHLORIDE 0.9% 1,000 ML ONE (08:09)
[2021-12-19] MEDS ORDERED: MORPHINE 4 MG/ML SYR ONE (08:09)
[2021-12-19] MEDS ORDERED: ONDANSETRON 4 MG/2 ML VIAL ONE (08:09)
[2021-12-19 08:23] LABS: BUN Blood Urea Nitrogen 9 mg/dL (7-18); Bicarbonate 25 mmol/L (21-32); Glomerular Filtration Rate 82 ml/min (=/>90); Glucose Level 106 mg/dL (74-106); Potassium 4.3 mmol/L (3.5-5.1); Sodium Level 137 mmol/L (136-145)
[2021-12-19 08:30] LABS: HCG, Quantitative < 1 mIU/mL (1-3)
[2021-12-19 09:12] LABS: Urine Blood 2+ (Negative); Urine Glucose Negative (Negative); Urine Protein Negative (Negative); Urine Specific Gravity 1.015 (1.005-1.030)
--- NOTE | 2021-12-19 09:30 | RAD REPORT ---
EXAM DESCRIPTION: CT - Abdomen Pelvis W Contrast - 12/19/2021 9:13 am CLINICAL HISTORY: RLQ abdominal pain COMPARISON: Abdomen Pelvis W Contrast dated 04/02/2020 TECHNIQUE: Biphasic, helical CT imaging of the abdomen and pelvis was performed following 100 ml non -ionic IV contrast. No oral contrast administered All CT scans are performed using dose optimization technique as appropriate and may include automated exposure control or mA/KV adjustment according to patient size. FINDINGS: No suspicious findings in the lung bases. The liver, spleen, and pancreas show no suspicious findings. Gallbladder and biliary tree are also wi thout suspicious finding. Symmetric renal function is seen with no hydronephrosis or suspicious renal mass. No pyelonephritis o r acute parenchymal process. No bladder abnormalities. No adrenal abnormalities. Uterus and ovaries s how no suspicious findings. Small follicles are seen in each ovary. No ovarian cyst rupture or hemorr aba seen. No dilated bowel loops or bowel wall thickening. Appendectomy clips are present. No active GI process identifiable. No free air, free fluid or inflammatory stranding. No hernia, mass or bulky lymphaden opathy. No suspicious bony findings. IMPRESSION: Contrast enhanced CT abdomen and pelvis showing no significant or suspicious finding.
--- NOTE | 2021-12-19 09:57 | EDPHYS ---
Physician Documentation [facility] Name: Shani Valente Age: 41 yrs Sex: Female : 1980 Arrival Date: 12/19/2021 Time: 07:12 Bed 18 Private MD: Luis Enrique Arce T ED Physician Song Montesinos HPI: 12/19 07:50 This 41 yrs old Female presents to ER via Ambulatory with complaints of Vaginal kdr Bleeding, Vaginal Pain. 07:50 The patient presents with vaginal bleeding that is moderate, with clots. Onset: The kdr symptoms/episode began/occurred suddenly, just prior to arrival. Modifying factors: The symptoms are alleviated by nothing, the symptoms are aggravated by movement, walking. Associated signs and symptoms: The patient has no apparent associated signs or symptoms, Pertinent positives: vomiting. Severity of symptoms: At their worst the symptoms were moderate, severe, just prior to arrival, in the emergency department the symptoms are unchanged. The patient has not experienced similar symptoms in the past. The patient has not recently seen a physician. Historical: - Home Meds: 07:45 Lamictal 200 mg Oral tab 2 times per day [Active]; jh6 - PMHx: 07:45 Seizures; 6 - Immunization history:: Adult Immunizations up to date. - Social history:: Smoking status: Patient denies any tobacco usage or history of. ROS: 07:50 Constitutional: Negative for fever, chills, and weight loss, Eyes: Negative for injury, kdr pain, redness, and discharge, ENT: Negative for injury, pain, and discharge, Neck: Negative for injury, pain, and swelling, Cardiovascular: Negative for chest pain, palpitations, and edema, Respiratory: Negative for shortness of breath, cough, wheezing, and pleuritic chest pain, Back: Negative for injury and pain, MS/Extremity: Negative for injury and deformity, Skin: Negative for injury, rash, and discoloration, Neuro: Negative for headache, weakness, numbness, tingling, and seizure activity. Psych: Negative for depression, anxiety, suicide ideation, homicidal ideation, and hallucinations, Allergy/Immunology: Negative for hives, rash, and allergies, Endocrine: Negative for neck swelling, polydipsia, polyuria, polyphagia, and marked weight changes, Hematologic/Lymphatic: Negative for swollen nodes, abnormal bleeding, and unusual bruising. 07:50 Abdomen/GI: Positive for abdominal pain, nausea, vomiting, abdominal cramps, Negative for diarrhea, constipation. 07:50 : Positive for vaginal bleeding, Negative for urinary symptoms, urinary frequency, small amounts, hematuria. Exam: 07:50 Constitutional: This is a well developed, well nourished patient who is awake, alert, kdr and in no acute distress. Head/Face: Normocephalic, atraumatic. Eyes: Pupils equal round and reactive to light, extra-ocular motions intact. Lids and lashes normal. Conjunctiva and sclera are non-icteric and not injected. Cornea within normal limits. Periorbital areas with no swelling, redness, or edema. Neck: Trachea midline, no thyromegaly or masses palpated, and no cervical lymphadenopathy. Supple, full range of motion without nuchal rigidity, or vertebral point tenderness. No Meningismus. Chest/axilla: Normal chest wall appearance and motion. Nontender with no deformity. No lesions are appreciated. Cardiovascular: Regular rate and rhythm with a normal S1 and S2. No gallops, murmurs, or rubs. Normal PMI, no JVD. No pulse deficits. Respiratory: Lungs have equal breath sounds bilaterally, clear to auscultation and percussion. No rales, rhonchi or wheezes noted. No increased work of breathing, no retractions or nasal flaring. Back: No spinal tenderness. No costovertebral tenderness. Full range of motion. Skin: Warm, dry with normal turgor. Normal color with no rashes, no lesions, and no evidence of cellulitis. MS/ Extremity: Pulses equal, no cyanosis. Neurovascular intact. Full, normal range of motion. Neuro: Awake and alert, GCS 15, oriented to person, place, time, and situation. Cranial nerves II-XII grossly intact. Motor strength 5/5 in all extremities. Sensory grossly intact. Cerebellar exam normal. Normal gait. Psych: Awake, alert, with orientation to person, place and time. Behavior, mood, and affect are within normal limits. 07:50 Abdomen/GI: Inspection: abdomen appears normal, obese Bowel sounds: active, all quadrants, diminished, Palpation: soft, mild abdominal tenderness, in the suprapubic area, right lower quadrant and left lower quadrant. Vital Signs: 07:43 BP 117 / 71; Pulse 80; Resp 17; Temp 97.1; Pulse Ox 100% ; Weight 106.59 kg; Height 5 6 ft. 9 in. (175.26 cm); Pain 9/10; 09:00 BP 120 / 70; Pulse 77; Resp 17; Pulse Ox 100% ; Pain 1/10; jh6 10:07 BP 122 / 64; Pulse 76; Resp 17; Pulse Ox 100% ; Pain 0/10; 6 07:43 Body Mass Index 34.70 (106.59 kg, 175.26 cm) [facility] MDM: 09:57 Patient medically screened. kdr 10:00 Data reviewed: vital signs, nurses notes, lab test result(s), radiologic studies. kdr Counseling: I had a detailed discussion with the patient and/or guardian regarding: the historical points, exam findings, and any diagnostic results supporting the discharge/admit diagnosis, lab results, radiology results, the need for outpatient follow up. 12/19 07:17 Order name: Basic Metabolic Panel; Complete Time: 09:09 [facility] 12/19 07:17 Order name: CBC with Diff; Complete Time: 09:09 kdr 12/19 07:17 Order name: Quantitative Hcg; Complete Time: 09:09 kdr 12/19 09:12 Order name: Urine Dipstick-Ancillary; Complete Time: 09:46 EDMS 12/19 07:17 Order name: IV Saline Lock; Complete Time: 07:56 kdr 12/19 07:17 Order name: Labs collected and sent; Complete Time: 07:56 kdr 12/19 07:17 Order name: NPO; Complete Time: 07:56 [facility] 12/19 07:17 Order name: Urine Dipstick-Ancillary (obtain specimen); Complete Time: 09:20 kdr 12/19 07:48 Order name: CT Abd/Pelvis - IV Contrast Only; Complete Time: 09:46 kdr Administered Medications: 08:07 Drug: Zofran (Ondansetron) 4 mg Route: IVP; Site: right antecubital; 6 09:00 Follow up: Response: No adverse reaction 6 08:08 Drug: NS 0.9% 1000 ml Route: IV; Rate: 1 bolus; Site: right antecubital; 6 10:09 Follow up: IV Status: Completed infusion 6 08:08 Drug: morphine 4 mg Route: IVP; Infused Over: 4 mins; Site: right antecubital; jh6 09:00 Follow up: Response: Pain is decreased 6 Disposition Summary: 12/19/21 09:57 Discharge Ordered Location: Home kdr Condition: Stable kdr Diagnosis - Other specified abnormal uterine and vaginal bleeding kdr - Abnormal uterine and vaginal bleeding, unspecified kdr - Anemia, unspecified kdr - Lower abdominal pain, unspecified kdr Followup: kdr - With: Luis Enrique Arce MD - When: 2 - 3 days - Reason: If symptoms return, Further diagnostic work-up, Recheck today's complaints, Continuance of care, Re-evaluation by your physician Followup: kdr - With: Maritza Boudreaux MD - When: 2 - 3 days - Reason: If symptoms return, Further diagnostic work-up, Recheck today's complaints, Continuance of care, Re-evaluation by your physician Discharge Instructions: - Discharge Summary Sheet kdr - Abnormal Uterine Bleeding kdr - Anemia kdr - Abdominal Pain, Adult, [id number] kdr Forms: - Medication Reconciliation Form kdr - Thank You Letter kdr Prescriptions: - Tramadol 50 mg Oral Tablet - take 1 tablet by ORAL route every 4-6 hours as needed; 12 tablet; Refills: 0, kdr Product Selection Permitted Signatures: Dispatcher [employer] EDMS Song Montesinos MD MD kdr Stephanie Lundy, RN RN jh6
--- NOTE | 2021-12-19 09:57 | ER ---
Nurse's Notes [facility] Name: Shani Valente Age: 41 yrs Sex: Female : 1980 Arrival Date: 12/19/2021 Time: 07:12 Bed 18 Private MD: Luis Enrique Arce T Diagnosis: Other specified abnormal uterine and vaginal bleeding;Abnormal uterine and vaginal bleeding, unspecified;Anemia, unspecified;Lower abdominal pain, unspecified Presentation: 12/19 07:43 Chief complaint: Patient states: Sharp lower abd pain starting this am. Pt currently on jh6 menstrual cycle. Coronavirus screen: Vaccine status: Patient reports receiving the 2nd dose of the covid vaccine. Ebola Screen: Patient negative for fever greater than or equal to 101.5 degrees Fahrenheit, and additional compatible Ebola Virus Disease symptoms Patient denies exposure to infectious person. Patient denies travel to an Ebola-affected area in the 21 days before illness onset. Initial Sepsis Screen: Does the patient meet any 2 criteria? No. Patient's initial sepsis screen is negative. Does the patient have a suspected source of infection? No. Patient's initial sepsis screen is negative. Risk Assessment: Do you want to hurt yourself or someone else? Patient reports no desire to harm self or others. Onset of symptoms was December 19, 2021. 07:43 Method Of Arrival: Ambulatory [facility] 07:43 Acuity: YOBANY 3 6 Triage Assessment: 07:46 General: Appears uncomfortable, Behavior is calm, cooperative. Pain: Complains of pain [facility] in suprapubic area, right inguinal area and left inguinal area Pain currently is 9 out of 10 on a pain scale. Quality of pain is described as crampy, sharp, shooting, stabbing, Pain began suddenly, 2 hours ago. Is continuous. : Reports vaginal bleeding that is bright red, with clots. Historical: - Home Meds: 07:45 Lamictal 200 mg Oral tab 2 times per day [Active]; [facility] - PMHx: 07:45 Seizures; 6 - Immunization history:: Adult Immunizations up to date. - Social history:: Smoking status: Patient denies any tobacco usage or history of. Screenin:47 Abuse screen: Denies threats or abuse. Denies injuries from another. Nutritional jh6 screening: No deficits noted. Tuberculosis screening: No symptoms or risk factors identified. Fall Risk Assessment: 07:57 General: see triage note. jh6 07:58 : Reports vaginal bleeding that is with clots, heavy flow. jh6 Vital Signs: 07:43 BP 117 / 71; Pulse 80; Resp 17; Temp 97.1; Pulse Ox 100% ; Weight 106.59 kg; Height 5 jh6 ft. 9 in. (175.26 cm); Pain 9/10; 09:00 BP 120 / 70; Pulse 77; Resp 17; Pulse Ox 100% ; Pain 1/10; jh6 10:07 BP 122 / 64; Pulse 76; Resp 17; Pulse Ox 100% ; Pain 0/10; jh6 07:43 Body Mass Index 34.70 (106.59 kg, 175.26 cm) 6 ED Course: 07:12 Patient arrived in ED. rg4 07:12 Luis Enrique Arce MD is Private Physician. rg4 07:15 Song Montesinos MD is Attending Physician. kdr 07:35 Stephanie Lundy RN is Primary Nurse. jh6 07:45 Triage completed. jh6 07:46 Arm band placed on left wrist. Patient placed in the treatment room, on a stretcher, on jh6 pulse oximetry. 07:47 Inserted. jh6 07:57 Bed in low position. Call light in reach. Side rails up X 1. Adult w/ patient. jh6 07:57 Inserted saline lock: 20 gauge in right antecubital area, using aseptic technique. jh6 Blood collected. 09:15 CT Abd/Pelvis - IV Contrast Only In Process Unspecified. EDMS 09:20 Patient moved back from CT. jh6 09:55 Luis Enrique Arce MD is Referral Physician. kdr 09:55 Maritza Boudreaux MD is Referral Physician. kdr 10:08 No provider procedures requiring assistance completed. jh6 10:08 IV discontinued, intact, bleeding controlled, No redness/swelling at site. Pressure jh6 dressing applied. Administered Medications: 08:07 Drug: Zofran (Ondansetron) 4 mg Route: IVP; Site: right antecubital; jh6 09:00 Follow up: Response: No adverse reaction 6 08:08 Drug: NS 0.9% 1000 ml Route: IV; Rate: 1 bolus; Site: right antecubital; jh6 10:09 Follow up: IV Status: Completed infusion [facility] 08:08 Drug: morphine 4 mg Route: IVP; Infused Over: 4 mins; Site: right antecubital; [facility] 09:00 Follow up: Response: Pain is decreased 6 Medication: 07:59 VIS not applicable for this client. [facility] Outcome: 09:57 Discharge ordered by . kdr 10:08 Discharged to home ambulatory. [facility] 10:08 Condition: improved 10:08 Discharge instructions given to patient, family, Instructed on discharge instructions, follow up and referral plans. Demonstrated understanding of instructions, follow-up care, medications, Prescriptions given X 1. 10:09 Patient left the ED. 6 Signatures: Dispatcher [employer] EDMS Song Montesinos MD MD kdr Garcia, Rubi rg4 Stephanie Lundy RN RN 6
[2021-12-19 10:16] VITALS: TEMP 97.1; O2SAT 100
[2021-12-19 10:24] VITALS: BP 122/64
== END 2021-12-19 10:09 | disposition home or self-care (01) ==
LOC: ER 07:09
DX: N93.8 Other specified abnormal uterine and vaginal bleeding (principal); D64.9 Anemia, unspecified; R10.30 Lower abdominal pain, unspecified; R11.10 Vomiting, unspecified
CPT/HCPCS: 36415; 74177; 80048; 81003; 84702; 85025; J2405; J7030; Q9967

== ENCOUNTER 2023-01-19 10:29 | Emergency (ER) | payer BC ==
--- OUTSIDE RECORDS SUMMARY | 2023-01-19 10:33 | XMS REPORT | Continuity of Care Document ---
:1980 Author Organization [facility] t Address [address] [place] [address] [place] [id number] Care Team Providers Name Role Phone Ewa Reed DO Attending Clinician Payers Payer Name Policy Type Policy Number Effective Date Expiration Date S ource Problems Condition Condition Condition Status Onset Resolution Last Treating Co mments Source Name Details Category Date Date Treatment Clinician Date Obesity Obesity Disease Active 2015-07 Univers (BMI (BMI 2-02 ity of 30-39.9) 30-39.9) 00:00: [address] Allergies, Adverse Reactions, Alerts Allergy Allergy Status Severity Reaction(s) Onset Inactive Treating Comm ents Source Name Type Date Date Clinician NO KNOWN Drug Active Univers ALLERGIE Class ity of [facility] Social History Social Habit Start Date Stop Date Quantity Comments Source Sex Assigned At Uni [facility] Smoking Status Start Date Stop Date Source Unknown if ever smoked Universit y [facility] Medications Ordered Filled Start Stop Current Ordering Indication Dosage Frequency Signature Comments Components Source Medication Medication Date Date Medication? Clinician (SIG) Name Name diphenhydrA 2019-0 2020- No 25mg 25 mg, Uni vers MINE 09-17- Slow IV ity of (BENADRYL) 02:45: 01:45 [place], [place] injection 00 :00 ONCE, 1 Medical 25 mg dose, Fri Branch 09/17/19 at 2145, STAT metoclopram 2019-0 2020- No 10mg 10 mg, Uni vers luciano HCl 09-1714 Slow IV ity of (REGLAN) 02:15: 01:37 [...] Restricted medication : EWA REED metoclopram Yes [id number] 10mg Take 1 Univers luciano HCl 10 [...] 01:05:00 146 mm[Hg] Univer sity of pressure [facility] Diastolic blood 2019-09-18 01:05:00 102 mm[Hg] Unive rsity of [facility] Heart rate 2019-09-18 01:05:00 97 /min Universi ty [facility] Body temperature 2019-09-18 01:05:00 37.17 Azucena Univ ersity [facility] Respiratory rate 2019-09-18 01:05:00 12 /min [facility] Body height 2019-09-18 01:05:00 167.6 cm Universi ty of [facility] Body weight 2019-09-18 01:05:00 102.059 kg Universi ty of [facility] BMI 2019-09-18 01:05:00 36.32 kg/m2 Universi ty of [facility] Oxygen saturation in 2019-09-18 01:05:00 97 /min University of Arterial blood by [facility] Pulse oximetry Branch Systolic blood 2019-09-18 01:05:00 146 mm[Hg] Univer sity of pressure [facility] Diastolic blood 2019-09-18 01:05:00 102 mm[Hg] [facility] [place] Heart rate 2019-09-18 01:05:00 97 /min Universi ty of [facility] Body temperature 2019-09-18 01:05:00 37.17 Azucena [facility] Respiratory rate 2019-09-18 01:05:00 12 /min [facility] Body height 2019-09-18 01:05:00 167.6 cm Universi ty of [facility] Body weight 2019-09-18 01:05:00 102.059 kg Universi ty of [facility] BMI 2019-09-18 01:05:00 36.32 kg/m2 Universi ty of [facility] Oxygen saturation in 2019-09-18 01:05:00 97 /min University of Arterial blood by [facility] Pulse oximetry Branch Procedures Procedure Date / Time Performing Clinician Source Performed POCT TEST 2019-09-18 01:35:00 [facility] L[facility] 2019-09-18 01:32:00 Ewa Reed [facility] y [facility] HEPATIC FUNCTION PANEL 2019-09-18 01:32:00 Ewa Reed [facility] ([id number]) (ALB,T.PRO,BILI Medical Branch T,BU/BC,ALT,AST,ALK PHOS) BASIC METABOLIC PANEL 2019-09-18 01:32:00 Ewa Reed [facility] (NA, K, CL, CO2, Medical Branch GLUCOSE, BUN, CREATININE, CA) CBC WITH DIFFERENTIAL 2019-09-18 01:32:00 Ewa Reed Uni versity [facility] URINALYSIS 2019-09-18 01:32:00 Ewa Reed Universit y [facility] CONSENT/REFUSAL FOR 2019-09-18 00:55:05 Doctor Unassigned, No [facility] DIAGNOSIS AND TREATMENT Name [facility] NOTICE OF PRIVACY 2019-09-18 00:54:51 Doctor Unassigned, No Univ ersity [facility] PRACTICES Name [facility] Encounters Start End Encounter Admission Attending Care Care Encounter Source Date/Time Date/Time Type Type Clinicians Facility Department ID 2019-09-17 2019-09-17 [facility] [id number] Univers 19:58:41 21:55:00 Ewa Clark [id number] [place] [facility] [id number] [facility] [id number] [place] [address] Branch 2019-09-17 2019-09-17 Emergency Harry [facility] [id number] 19:58:41 21:55:00 Ewa Clark [id number] [place] [id number] [place] [id number] [facility] 2019-09-17 2019-09-17 Emergency X [facility] ERT [id number] Univers 19:53:00 19:53:00 [facility] Results Test Description Test Time Test Comments Results Result Comments Source Hepatic Function Panel (ALB, T.PRO, BILI T, BU/BC, ALT , AST, 2019-09-18 02:01:00 ALK PHOS) Test Item Value Reference Range Interpretation Comme nts TOTAL BILI (test code = 3181712226) 0.2 mg/dL 0.1-1.1 BILI UNCON (test code = 5839686705) 0.0 mg/dL 0.1-1.1 L BILI CONJ (test code = 7237575046) 0.0 mg/dL 0-0.3 T PROTEIN (test code = 1426660697) 7.2 g/dL 6.3-8.2 ALBUMIN (test code = 0273201196) 4.4 g/dL 3.5-5 ALK PHOS (test code = 4072233229) 104 U/L 34-122 ALTv (test code = 1742-6) 20 U/L 5-35 AST(SGOT) (test code = 1631585563) 26 U/L 13-40 Lab Interpretation (test code = 36173-8) Abnormal [facility] Metabolic Panel (NA, K, CL, CO2, GLUCOSE, BUN, CREATININE, CA)2019-09-18 02:00:00 Test Item Value Reference Range Interpretation Comments NA (test code = 137 mmol/L 135-145 4758974906) K (test code = 4.4 mmol/L 3.5-5 0318875177) CL (test code = 104 mmol/L 98-108 7845680652) CO2 TOTAL (test code = 25 mmol/L 23-31 6356952609) AGAP (test code = 2-16 1206546118) BUN (test code = 13 mg/dL 7-23 6317905479) GLUCOSE (test code = 105 mg/dL 70-110 4484356529) CREATININE (test code 0.96 mg/dL 0.5-1.04 = 9183379373) CALCIUM (test code = 9.0 mg/dL 8.6-10.6 9312578514) eGFR Calculation mL/min/1.73m2 (Non-) (test code = 2510551712) eGFR Calculation mL/min/1.73m2 () (test code = 3062393895) DUANE (test code = DUANE) Association of [...] or urine or abnormalities in imaging tests). [facility] [id number] 02:00:00 Test Item Value Reference Range Interpretation Comments LIPASE (test code = 2966232060) 42 U/L 0-220 Lab Interpretation (test code = Normal 24999-0) [facility]2020-[facility]-14 01:50:00 Test Item Value Reference Range Interpretation Comments APPEARANCE (test code = Hazy Clear A 1119974583) COLOR (test code = Yellow Yellow 8998339952) PH (test code = 4.8-8.0 6168914794) SP GRAVITY (test code = 1.003-1.030 6551219467) GLU U QUAL (test code = Normal Normal 3281053687) BLOOD (test code = Negative Negative 1711262114) KETONES (test code = Negative Negative 5777366587) PROTEIN (test code = Negative Negative 2887-8) UROBILIN (test code = 2.0 mg/dL Normal A 5689819303) BILIRUBIN (test code = Negative Negative 8581816366) NITRITE (test code = Negative Negative 3405893658) LEUK CHANG (test code = Negative Negative 7313095453) RBC/HPF (test code = See_Comment [Autom ated message] 0226334011) The system api[employer] generated this result transmit leyla reference range : 0 - 3 HPF. The refe rence range was not u sed to interpret th is result as normal/abnormal . WBC/HPF (test code = See_Comment [Autom ated message] 1795559805) The system [employer] generated this result transmit leyla reference range : 0 - 5 HPF. The refe rence range was not u sed to interpret th is result as normal/abnormal . BACTERIA (test code = Negative Negative 0251106720) MUCOUS (test code = Slight Negative LPF A 2400793641) SQ EPITH (test code = HPF 4509472493) Lab Interpretation (test Abnormal code = 27656-9) [facility] WITH [id number] 01:43:00 Test Item Value Reference Range Interpretation [...] RDW-SD (test code = 47.3 fL 39-49.9 20412-6) RDW-CV (test code = 15.7 % 12-15.5 H 788-0) PLT (test code = See_Comment H [Automated 777-3) message] The sy stem which generated this result transmitted reference range : 166 - 358 10*3/ ?L. The reference r graeme was not used to interpret this result as normal/abnormal . MPV (test code = 9.1 fL 9.5-12.9 L 49966-1) NRBC/100 WBC (test See_Comment [Automat ed code = 3368460048) message] The system which generated this result transmitted reference range : 0.0 - 10.0 /100 WBCs. The refer ence range was not u sed to interpret th is result as normal/abnormal . NRBC x10^3 (test code <0.01 See_Comment [Auto mated = 7662005780) message] The s ystem which generated this result transmitted reference range : 10*3/?L. The reference range was not used to interpret this result as normal/abnormal . GRAN MAT (NEUT) % 65.6 % (test code = 770-8) IMM GRAN % (test code 0.60 % = 9317469267) LYMPH % (test code = 25.3 % 736-9) MONO % (test code = 6.1 % 5905-5) EOS % (test code = 1.8 % 713-8) BASO % (test code = 0.6 % 706-2) GRAN MAT x10^3(ANC) 6.05 10*3/uL 1.88-7.09 (test code = 3569774093) IMM GRAN x10^3 (test 0.06 10*3/uL 0-0.06 code = 9293848227) LYMPH x10^3 (test code 2.34 10*3/uL 1.32-3.29 = 731-0) MONO x10^3 (test code 0.56 10*3/uL 0.33-0.92 = 742-7) EOS x10^3 (test code = 0.17 10*3/uL 0.03-0.39 711-2) BASO x10^3 (test code 0.06 10*3/uL 0.01-0.07 = 704-7) Lab Interpretation Abnormal (test code = 64661-6) [facility], [id number] 01:35:00 Test Item Value Reference Range Interpretation Comments POCT PREG (test code = 1605) negative On board controls acceptable with positive C Line (test code = 3574) POCT PREG LOT # (test code = 3575) [id number] POCT PREG TEST DATE (test 02-03-2021 code = 3576) Lab Interpretation (test code = Normal 54115-3) [facility]"
[2023-01-19] MEDS ORDERED: dexAMETHasone 10 MG/ML VIAL ONE (11:17)
[2023-01-19] MEDS ORDERED: MORPHINE 4 MG/ML SYR ONE ×2 (11:17→12:40)
[2023-01-19] MEDS ORDERED: NA CHLORIDE 0.9% 1,000 ML ONE (11:18)
[2023-01-19] MEDS ORDERED: ONDANSETRON 4 MG/2 ML VIAL ONE (11:18)
[2023-01-19] MEDS ORDERED: KETOROLAC 30 MG/ML INJ ONE (11:18)
[2023-01-19 11:29] LABS: Absolute Lymphocytes (CBC) 1.6 K/uL (0.7-4.9); Hematocrit 30.9 % (36.0-45.0); Lymphocytes % 22.6 % (15.3-44.8); MCV 72.2 fL (80-100); MPV 7.4 fL (7.6-11.3); RBC Red Blood Cell Count 4.29 M/uL (3.86-4.86)
[2023-01-19 12:05] LABS: Anisocytosis SLIGHT; Blood Morphology Comment NOTED (NOT SEEN); Hypochromasia 1+; Platelet Estimate ADEQ; White Blood Cell Scan OK (OK)
--- NOTE | 2023-01-19 12:37 | RAD REPORT ---
EXAM DESCRIPTION: CT - Spine Lumbar Wo Con - 01/19/2023 12:06 pm CLINICAL HISTORY: PAIN COMPARISON: No comparisons TECHNIQUE: Axial noncontrast CT imaging of the lumbar spine was performed with coronal and sagittal re-formatted images. All CT scans are performed using dose optimization technique as appropriate and may include automated exposure control or mA/KV adjustment according to patient size. FINDINGS: No acute lumbar spine fracture seen. No aggressive marrow pattern or malalignment. Paraspinal tissues are normal in thickness. No paraspinal abscess or hematoma seen. Intervertebral disc disease assessment is inherently limited by CT. Within these limitations, no high -grade canal stenosis suspected. Mild degenerative changes of the endplates and lower lumbar facet a rticulations are noted. Small disc bulges at L3-4 and L4-5 are noted, which in combination with asymm etric endplate remodeling contribute to mild right neural foraminal narrowing at L3-4. No other signi ficant bony neural foraminal narrowing. IMPRESSION: No acute osseous abnormality. Mild degenerative changes as above. . Please consider outpatient MRI follow-up for assessment of disc disease as clinically indicated.
[2023-01-19] MEDS ORDERED: LIDOCAINE 4% PATCH ONE (12:40)
[2023-01-19 13:20] LABS: Urine Bacteria None Seen /HPF (<20); Urine Bilirubin NEGATIVE (Negative); Urine Blood 1+ (Negative); Urine Clarity Turbid (Clear); Urine Color Light-Yellow (Yellow); Urine Glucose NEGATIVE (Negative); Urine Mucus Slight /HPF (None Seen); Urine Protein TRACE (Negative); Urine RBC <5 /HPF (None Seen); Urine Urobilinogen Normal (Normal)
--- NOTE | 2023-01-19 13:23 | EDPHYS ---
Physician Documentation [facility] Name: Shani Valente Age: 42 yrs Sex: Female : 1980 Arrival Date: 01/19/2023 Time: 10:29 Bed 15 Private MD: CURLY Physician Evan Barraza HPI: 01/19 10:54 This 42 yrs old Female presents to ER via Wheelchair with complaints of Back Pain. kb 10:54 Patient is a 42-year-old female with a history of seizures who presents for low back kb pain that started 3 days ago. Denies any injury or trauma. States pain is to center of low back only with no radiation. Denies any urinary symptoms. Denies fever. Denies numbness or tingling. Denies incontinence, urinary retention, constipation.. 10:55 The patient presents with pain that is acute. The symptoms are located in the lumbar kb area. The pain does not radiate. The problem was sustained from unknown cause. Onset: The symptoms/episode began/occurred 3 day(s) ago. Modifying factors: The patient symptoms are alleviated by nothing, the patient symptoms are aggravated by any movement. Associated signs and symptoms: The patient has no apparent associated signs or symptoms. Severity of symptoms: At their worst the symptoms were moderate, severe, in the emergency department the symptoms are unchanged. The patient has not experienced similar symptoms in the past. The patient has not recently seen a physician. Historical: - Allergies: 10:36 No Known Allergies; iw - Home Meds: 10:36 Topamax Oral [Active]; Lamictal 200 mg Oral tab 2 times per day [Active]; Omeprazole iw Oral [Active]; - PMHx: 10:36 Seizures; iw - PSHx: 10:36 Appendectomy; iw - Immunization history:: Adult Immunizations up to date. - Social history:: Smoking status: unknown. ROS: 11:20 Constitutional: Negative for fever, chills, and weight loss. kb 11:20 Back: Positive for pain at rest, pain with movement, of the lumbar area. 11:20 All other systems are negative. Exam: 11:20 Constitutional: This is a well developed, well nourished patient who is awake, alert, kb and in no acute distress. Head/Face: Normocephalic, atraumatic. ENT: Moist Mucous membranes Cardiovascular: Regular rate and rhythm with a normal S1 and S2. No gallops, murmurs, or rubs. No pulse deficits. Respiratory: Respirations even and unlabored. No increased work of breathing. Talking in full sentences Abdomen/GI: Soft, non-tender. No distention Skin: Warm, dry with normal turgor. Normal color. MS/ Extremity: Pulses equal, no cyanosis. Neurovascular intact. Full, normal range of motion. Neuro: Awake and alert, GCS 15, oriented to person, place, time, and situation. Moves all extremities. Normal gait. 11:20 Back: pain, that is moderate, of the lumbar area. Vital Signs: 10:37 BP 116 / 76; Pulse 87; Resp 16; Temp 98.1; Pulse Ox 100% on R/A; Weight 102.51 kg; iw Height 5 ft. 9 in. ; Pain 8/10; 11:30 BP 104 / 73; Pulse 79; Resp 18; Pulse Ox 97% on R/A; eh3 12:30 BP 125 / 76; Pulse 94; Resp 18; Pulse Ox 99% on R/A; eh3 10:37 Body Mass Index 33.37 (102.51 kg, 175.26 cm) iw 10:37 Pain Scale: Adult iw MDM: 10:35 Patient medically screened. kb 11:23 Differential diagnosis: strain, sciatica, Herniated disc UTI. Data reviewed: vital kb signs, nurses notes. 13:23 Counseling: I had a detailed discussion with the patient and/or guardian regarding: the kb historical points, exam findings, and any diagnostic results supporting the discharge/admit diagnosis, lab results, radiology results, the need for outpatient follow up, a family practitioner, to return to the emergency department if symptoms worsen or persist or if there are any questions or concerns that arise at home. Response to treatment: the patient's symptoms have markedly improved after treatment. 01/19 10:45 Order name: CBC with Diff; Complete Time: 12:13 kb 01/19 10:45 Order name: Basic Metabolic Panel; Complete Time: 11:46 kb 01/19 10:45 Order name: Urinalysis w/ reflexes; Complete Time: 13:21 kb 01/19 10:45 Order name: Test, Urine; Complete Time: 13:21 kb 01/19 11:35 Order name: Test, Serum; Complete Time: 12:13 kj1 01/19 12:05 Order name: CBC Smear Scan; Complete Time: 12:13 EDMS 01/19 10:45 Order name: CT Lumbar Spine Wo Con; Complete Time: 12:38 kb 01/19 10:45 Order name: IV Start; Complete Time: 11:25 kb Administered Medications: 11:25 Drug: Ketorolac IVP 30 mg Route: IVP; Site: left antecubital; eh3 11:58 Follow up: Response: No adverse reaction eh3 11:25 Drug: Decadron - Dexamethasone IVP 10 mg Route: IVP; Site: left antecubital; eh3 11:58 Follow up: Response: No adverse reaction eh3 11:25 Drug: NS 0.9% IV 1000 ml Route: IV; Rate: 1000 ml; Site: left antecubital; eh3 13:25 Follow up: IV Status: IV converted to saline lock; IV Intake: 500ml eh3 11:25 Drug: morphine IVP or IV 4 mg Route: IVP; Infused Over: 4 mins; Site: left antecubital; eh3 11:57 Follow up: Response: No adverse reaction eh3 11:25 Drug: Ondansetron IVP 4 mg Route: IVP; Site: left antecubital; eh3 11:57 Follow up: Response: No adverse reaction eh3 12:38 Drug: morphine IVP or IV 4 mg Route: IVP; Infused Over: 4 mins; Site: left antecubital; eh3 13:09 Follow up: Response: No adverse reaction; Pain is decreased eh3 12:38 Drug: Lidoderm Topical Patch 5 % (700 mg/patch) 1 patches Route: Topical; Site: 3 affected area; 13:09 Follow up: Response: No adverse reaction eh3 13:30 Drug: Cyclobenzaprine PO 10 mg Route: PO; eh3 13:36 Follow up: Response: Medication administered at discharge. eh3 Disposition Summary: 01/19/23 13:23 Discharge Ordered Location: Home Condition: Stable kb Diagnosis - Low back pain kb Followup: kb - With: Emergency Department - When: As needed - Reason: Worsening of condition Followup: kb - With: Private Physician - When: 2 - 3 days - Reason: Recheck today's complaints, Continuance of care, Re-evaluation by your physician Discharge Instructions: - Discharge Summary Sheet kb - Acute Back Pain, Adult kb - Musculoskeletal Pain kb - Herniated Disk, [id number] kb Forms: - Medication Reconciliation Form kb - Thank You Letter kb - Antibiotic Education kb - Prescription Opioid Use kb - Patient Portal Instructions kb Prescriptions: - Prednisone 20 mg Oral Tablet - take 1 tablet by ORAL route once daily for 5 days; 5 tablet; Refills: 0, kb Product Selection Permitted - Tramadol 50 mg Oral Tablet - take 1 tablet by ORAL route every 8 hours as needed; 12 tablet; Refills: 0, kb Product Selection Permitted - orphenadrine citrate 100 mg Oral Tablet Sustained Release - take 1 tablet by ORAL route 2 times per day As needed; 20 tablet; Refills: 0, kb Product Selection Permitted Signatures: Dispatcher [employer] Belkis Townsend, HAND TENNIS BALL COVERER-C HAND TENNIS BALL COVERER-Mima Alexander, RN RN iw Carmelina Adam RN RN eh3
--- NOTE | 2023-01-19 13:23 | ER ---
Nurse's Notes [facility] Name: Shani Valente Age: 42 yrs Sex: Female : 1980 Arrival Date: 01/19/2023 Time: 10:29 Bed 15 Private MD: Diagnosis: Low back pain Presentation: 01/19 10:35 Chief complaint: Patient states: low back pain X 4 days, denies injury, feels pressure iw in mid lower back when she moves her legs. Coronavirus screen: At this time, the client does not indicate any symptoms associated with coronavirus-19. Ebola Screen: Patient negative for fever greater than or equal to 101.5 degrees Fahrenheit, and additional compatible Ebola Virus Disease symptoms Patient denies exposure to infectious person. Patient denies travel to an Ebola-affected area in the 21 days before illness onset. No symptoms or risks identified at this time. Initial Sepsis Screen: Does the patient meet any 2 criteria? No. Patient's initial sepsis screen is negative. Does the patient have a suspected source of infection? No. Patient's initial sepsis screen is negative. Risk Assessment: Do you want to hurt yourself or someone else? Patient reports no desire to harm self or others. Onset of symptoms was January 15, 2023. 10:35 Method Of Arrival: Wheelchair iw 10:35 Acuity: YOBANY 3 iw Historical: - Allergies: 10:36 No Known Allergies; iw - Home Meds: 10:36 Topamax Oral [Active]; Lamictal 200 mg Oral tab 2 times per day [Active]; Omeprazole iw Oral [Active]; - PMHx: 10:36 Seizures; iw - PSHx: 10:36 Appendectomy; iw - Immunization history:: Adult Immunizations up to date. - Social history:: Smoking status: unknown. Screenin:40 [facility] ED Fall Risk Assessment (Adult) Score/Fall Risk Level 0 - 2 = Low Risk. Abuse eh3 screen: Denies threats or abuse. Denies injuries from another. Nutritional screening: No deficits noted. Tuberculosis screening: No symptoms or risk factors identified. Assessment: 10:40 General: Appears in no apparent distress. uncomfortable, Behavior is cooperative, eh3 appropriate for age, anxious. Pain: Complains of pain in lumbar area and sacrum Pain radiates to right leg and left leg. Neuro: Level of Consciousness is awake, alert, obeys commands, Oriented to person, place, time, situation. Cardiovascular: Capillary refill < 3 seconds Patient's skin is warm and dry. Respiratory: Airway is patent Respiratory effort is even, unlabored. GI: Abdomen is round non-distended. : Denies burning with urination, urinary frequency. Derm: Skin is intact, is healthy with good turgor. Musculoskeletal: Circulation, motion, and sensation intact. 11:30 Reassessment: Patient appears in no apparent distress at this time. Patient and/or eh3 family updated on plan of care and expected duration. Pain level reassessed. Patient is alert, oriented x 3, equal unlabored respirations, skin warm/dry/pink. 12:30 Reassessment: Patient appears in no apparent distress at this time. Patient and/or eh3 family updated on plan of care and expected duration. Pain level reassessed. Patient is alert, oriented x 3, equal unlabored respirations, skin warm/dry/pink. Vital Signs: 10:37 BP 116 / 76; Pulse 87; Resp 16; Temp 98.1; Pulse Ox 100% on R/A; Weight 102.51 kg; iw Height 5 ft. 9 in. ; Pain 8/10; 11:30 BP 104 / 73; Pulse 79; Resp 18; Pulse Ox 97% on R/A; eh3 12:30 BP 125 / 76; Pulse 94; Resp 18; Pulse Ox 99% on R/A; eh3 10:37 Body Mass Index 33.37 (102.51 kg, 175.26 cm) iw 10:37 Pain Scale: Adult iw ED Course: 10:32 Patient arrived in ED. ts1 10:35 Belkis Figueroa FNP-C is PHCP. kb 10:35 Evan Barraza MD is Attending Physician. kb 10:36 Triage completed. iw 10:37 Arm band placed on. iw 10:40 Patient has correct armband on for positive identification. Bed in low position. Call eh3 light in reach. Side rails up X2. Adult w/ patient. Provided Education on: N/A. Pulse ox on. NIBP on. 10:50 Missed attempt(s): 20 gauge in right antecubital area. Bleeding controlled, band aid eh3 applied, catheter tip intact. 10:57 Carmelina Adam, RN is Primary Nurse. eh3 10:57 Radiology exam delayed due to test not completed at this time. mw3 12:08 CT Lumbar Spine Wo Con In Process Unspecified. EDMS 13:40 IV discontinued, intact, bleeding controlled, No redness/swelling at site. Pressure eh3 dressing applied. 13:40 No provider procedures requiring assistance completed. eh3 Administered Medications: 11:25 Drug: Ketorolac IVP 30 mg Route: IVP; Site: left antecubital; eh3 11:58 Follow up: Response: No adverse reaction eh3 11:25 Drug: Decadron - Dexamethasone IVP 10 mg Route: IVP; Site: left antecubital; eh3 11:58 Follow up: Response: No adverse reaction eh3 11:25 Drug: NS 0.9% IV 1000 ml Route: IV; Rate: 1000 ml; Site: left antecubital; eh3 13:25 Follow up: IV Status: IV converted to saline lock; IV Intake: 500ml eh3 11:25 Drug: morphine IVP or IV 4 mg Route: IVP; Infused Over: 4 mins; Site: left antecubital; eh3 11:57 Follow up: Response: No adverse reaction eh3 11:25 Drug: Ondansetron IVP 4 mg Route: IVP; Site: left antecubital; eh3 11:57 Follow up: Response: No adverse reaction eh3 12:38 Drug: morphine IVP or IV 4 mg Route: IVP; Infused Over: 4 mins; Site: left antecubital; eh3 13:09 Follow up: Response: No adverse reaction; Pain is decreased eh3 12:38 Drug: Lidoderm Topical Patch 5 % (700 mg/patch) 1 patches Route: Topical; Site: 3 affected area; 13:09 Follow up: Response: No adverse reaction eh3 13:30 Drug: Cyclobenzaprine PO 10 mg Route: PO; eh3 13:36 Follow up: Response: Medication administered at discharge. eh3 Medication: 13:40 VIS not applicable for this client. eh3 Intake: 13:25 IV: 500ml; Total: 500ml. eh3 Outcome: 13:23 Discharge ordered by MD. krishnan 13:40 Discharged to home ambulatory, with family. eh3 13:40 Condition: stable 13:40 Discharge instructions given to patient, family, Instructed on discharge instructions, follow up and referral plans. no driving heavy equipment, medication usage, Demonstrated understanding of instructions, follow-up care, medications, Prescriptions given X 3. 13:40 Patient left the ED. 3 Signatures: Dispatcher [employer] EDMS Belkis Figueroa, MANAGER OF TRAINING-C MANAGER OF TRAINING-Ckb Mima Mcdonald, YAEL CONLEY iw Patricia Pearson 3 Carmelina Adam RN RN 3 Angélica De La Torre, [facility] ts1
[2023-01-19] MEDS ORDERED: CYCLOBENZAPRINE 10 MG TAB ONE (13:40)
[2023-01-19 14:10] VITALS: TEMP 98.1
[2023-01-19 14:14] VITALS: BP 125/76; O2SAT 99
== END 2023-01-19 13:40 | disposition home or self-care (01) ==
LOC: ER 10:29
DX: M54.50 Low back pain, unspecified (principal)
CPT/HCPCS: 96361; 85025; 81001; 80048; 36415; 84703; 81025; 72131; 96375; 96374; 99284; J2001; J1100; J2405; J7030

== ENCOUNTER 2023-10-15 09:16 | Emergency (ER) | payer OTHER ==
--- OUTSIDE RECORDS SUMMARY | 2023-10-15 09:20 | XMS REPORT | Continuity of Care Document ---
Author Name Unknown Address [address] [facility] [address] [place] [address] [facility] [address] [facility] [address] [place] [address] Care Team Providers Care Scalp Treatment Specialist Name Role Phone PCP, PATIENT DOES NOT HAVE A Primary Care Physic rakesh Unavailable BALTA BARRIOS Attending Clinician Unavailable Balta Barrios MD Attending Clinician [phone] Ewa Reed DO Attending Clinician [phone] BALTA BARRIOS Admitting Clinician Unavailable Payers Payer Name Policy Type Policy Number Effective Date Expirati on Date Source [employer] [id number] 2023 00:00:00 Problems Condition Name Condition Details Condition Category Status Onset Date Resolution Date Last Treatment Date Treating Clinician Comments Source Obesity (BMI 30-39.9) Obesity (BMI 30-39.9) Disease Active 2015-07 00:00: 00 [facility] Allergies, Adverse Reactions, Alerts Allergy Name Allergy Type Status Severity Reaction(s) Onset Date Inactive Date Treating Clinician Comments Source NO KNOWN ALLERGIE S Drug Class Active [facility] Social History Social Habit Start Date Stop Date Quantity Comments Source Sexual orientation U [facility] Sex Assigned At 1980 00:00:00 1980 00:00:00 [facility] Smoking Status Start Date Stop Date Source Tobacco smoking consumption unknown [facility] Medications Ordered Medication Name Filled Medication Name Start Date Stop Date Current Medication? Ordering Clinician Indication Dosage Frequency Signature (SIG) Comments Components Source ketorolac (TORADOL) tablet 20 mg 2022-07 22:45: 00 06-14 21:36 :00 No 20mg 20 mg, Oral, ONCE NOW, 1 dose, On 06/14/23 at 1645, AI [facility] dextrometho rphan-guaif enesin (ROBITUSSIN DM) 10-100 mg/5 mL solution 10 mL 2022-07 22:45: 00 06-14 21:36 :00 No 10mL 10 mL, Oral, ONCE NOW, 1 dose, On 06/14/23 at 1645, Routine [facility] predniSONE (DELTASONE) tablet 40 mg 2022-07 22:30: 00 06-14 21:33 :00 No 40mg 40 mg, Oral, ONCE NOW, 1 dose, On 06/14/23 at 1630, AI [facility] Dextrometho rphan-Guaif enesin (ROBITUSSIN COUGH-CHEST BRENDAN DM) 10-200 mg Cap 2022-07 00:00: 00 Yes [id number] 1{capsu le} Take 1 capsule by mouth 3 (three) times daily as needed for Cough (Congestio n). [facility] benzocaine- menthoL (CEPACOL SORE THROAT, KARLOS-MEN,) lozenge 2022-07 00:00: 00 Yes [id number] 1{lozen ge} Take 1 Lozenge by mouth every 4 (four) hours as needed for Sore throat. [facility] acetaminoph en (TYLENOL ARTHRITIS PAIN) 650 mg CR tablet 2022-07 00:00: 00 Yes [id number] 650mg Take 1 tablet by mouth every 8 (eight) hours as needed for Pain. [facility] ketorolac 10 mg tablet 2022-07 00:00: 00 Yes [id number] 10mg Take 1 tablet by mouth every 6 (six) hours as needed for Pain (scale 4-6) or Pain (scale 7-10). [facility] vitamin C with josé manuel hips (VITAMIN C) 1,000 mg tablet 2022-07 00:00: 00 Yes [id number] 1000mg Take 1 tablet by mouth in the morning. [facility] Zinc Gluconate 100 mg Tab 2022-07 00:00: 00 Yes [id number] 1{tbl} Take 1 tablet by mouth in the morning. [facility] diphenhydrA MINE (BENADRYL) injection 25 mg 09-17 02:45: 00 09-17 01:45 :00 No 25mg 25 mg, Slow IV Push, ONCE, 1 dose, 09/17/19 at 2145, STAT [facility] metoclopram luciano HCl (REGLAN) injection 10 mg 09-17 02:15: 00 09-17 01:37 :00 No 10mg 10 mg, Slow IV Push, ONCE, 1 dose, 09/17/19 at 2115, AI [facility] ketorolac (TORADOL) injection 30 mg 09-17 01:45: 00 09-17 01:45 :00 No 30mg 30 mg, Slow IV Push, ONCE, 1 dose, 09/17/19 at 2045, AI
Fa culty member approving Restricted medication : EWA REED [facility] metoclopram luciano HCl 10 mg tablet 09-16 00:00: 00 Yes [id number] 10mg Take 1 tablet by mouth every 6 (six) hours as needed for Nausea and Vomiting (N/V). [facility] hydrOXYzine 10 mg tablet 2016-07 00:00: 00 Yes 10mg Take 1 tablet by mouth every 6 (six) hours as needed for Itching. [facility] naproxen sodium (ANAPROX DS) 550 mg tablet 2016-07 00:00: 00 Yes 550mg Take 1 tablet by mouth 2 (two) times daily with meals. [facility] maalox/diph enhydrAMINE :lidocaine2 % viscous 1:1:1 Susp suspension 10-12 00:00: 00 Yes 10mL Take 10 mL by mouth 4 (four) times daily as needed for Oral mucositis. Rinse and Spit before meals and bedtime. [facility] proMETHazin e 25 mg tablet 10-12 00:00: 00 Yes 25mg Take 1 tablet by mouth every 6 (six) hours as needed for Nausea and Vomiting (N/V). [facility] maalox/diph enhydrAMINE :lidocaine2 % viscous 1:1:1 Susp suspension 10-12 00:00: 00 Yes 10mL Take 10 mL by mouth 4 (four) times daily as needed for Oral mucositis. Rinse and Spit before meals and bedtime. [facility] Vital Signs Vital Name Observation Time Observation Value Comments S ourriccardo Systolic blood pressure 2023-06-14 19:29:00 143 mm[Hg] [facility] Diastolic blood pressure 2023-06-14 19:29:00 88 mm[Hg] [facility] Heart rate 2023-06-14 19:29:00 99 /min [facility] Body temperature 2023-06-14 19:29:00 37.28 Azucena [facility] Respiratory rate 2023-06-14 19:29:00 18 /min [facility] Body height 2023-06-14 19:29:00 69 cm [facility] Body weight 2023-06-14 19:29:00 108.863 kg [facility] BMI 2023-06-14 19:29:00 228.66 kg/m2 [facility] Oxygen saturation in Arterial blood by Pulse oximetry 2023-06-14 19:29:00 100 /min [facility] Systolic blood pressure 2019-09-18 01:05:00 146 mm[Hg] [facility] Diastolic blood pressure 2019-09-18 01:05:00 102 mm[Hg] [facility] Heart rate 2019-09-18 01:05:00 97 /min [facility] Body temperature 2019-09-18 01:05:00 37.17 Azucena [facility] Respiratory rate 2019-09-18 01:05:00 12 /min [facility] Body height 2019-09-18 01:05:00 167.6 cm [facility] Body weight 2019-09-18 01:05:00 102.059 kg [facility] BMI 2019-09-18 01:05:00 36.32 kg/m2 [facility] Oxygen saturation in Arterial blood by Pulse oximetry 2019-09-18 01:05:00 97 /min [facility] Systolic blood pressure 2019-09-18 01:05:00 146 mm[Hg] [facility] Diastolic blood pressure 2019-09-18 01:05:00 102 mm[Hg] [facility] Heart rate 2019-09-18 01:05:00 97 /min [facility] Body temperature 2019-09-18 01:05:00 37.17 Azucena [facility] Respiratory rate 2019-09-18 01:05:00 12 /min [facility] Body height 2019-09-18 01:05:00 167.6 cm [facility] Body weight 2019-09-18 01:05:00 102.059 kg [facility] BMI 2019-09-18 01:05:00 36.32 kg/m2 [facility] Oxygen saturation in Arterial blood by Pulse oximetry 2019-09-18 01:05:00 97 /min [facility] Procedures Procedure Date / Time Performed Performing Clinician Source RAPID STREP SCREEN FOR GROUP A 2023-06-14 21:31:00 Balta Barrios [facility] RAPID INFLUENZA A/B 2023-06-14 21:31:00 Kevin Barrios [facility] ASSIGNMENT OF BENEFITS 2023-06-14 21:27:24 Docto r Unassigned, [place] [facility] CONSENT/REFUSAL FOR DIAGNOSIS AND TREATMENT 2023-06-14 18:58:13 Doctor Unassigned, [place] [facility] POCT TEST 2019-09-18 01:35:00 Adelina Reed ra [facility] LIPASE 2019-09-18 01:32:00 [facility] (20965[facility] (ALB,T.PRO,BILI T,BU/BC,ALT,AST,ALK PHOS) 2019-09-18 01:32:00 Ewa Reed [facility] BASIC METABOLIC PANEL (NA, K, CL, CO2, GLUCOSE, BUN, CREATININE, CA) 2019-09-18 01:32:00 Ewa Reed [facility] CBC WITH DIFFERENTIAL 2019-09-18 01:32:00 Sa blanka Reed [facility] URINALYSIS 2019-09-18 01:32:00 [facility]USAL FOR [facility]AGNOSIS AND TREATMENT 2019-09-18 00:55:05 Doctor Unassigned, [place] [facility] NOTICE OF PRIVACY PRACTICES 2019-09-18 00:54:51 Doctor Unassigned, [place] [facility] Encounters Start Date/Time End Date/Time Encounter Type Admission Type Attending [facility] Care Department Encounter ID Source 2023-06-14 13:30:00 2023-06-14 16:55:00 Emergency X BALTA BARRIOS [facility] ERT [id number] [facility] 2023-06-14 13:30:00 2023-06-14 16:55:00 Emergency Balta Barrios [facility] [id number] [facility] 2019-09-17 19:58:41 2019-09-17 21:55:00 Emergency Ewa Reed [facility] [id number] [facility] 2019-09-17 19:58:41 2019-09-17 21:55:00 Emergency Ewa Reed [facility] [id number] 2019-09-17 19:53:00 2019-09-17 19:53:00 Emergency X [facility] ERT [id number] [facility] Results Test Description Test Time Test Comments Results Result Co mments Source [facility] (NA, K, CL, CO2, GLUCOSE, BUN, CREATININE, CA)2019-09-18 02:00:00* Test Item Value Reference Range Interpretation Comme nts NA (test code = 2682760069) 137 mmol/L 135-145 K (test code = 9757424470) 4.4 mmol/L 3.5-5 CL (test code = 1478402819) 104 mmol/L 98-108 CO2 TOTAL (test code = 5746910860) 25 mmol/L 23-31 AGAP (test code = 3339262731) 2-16 BUN (test code = 1197838378) 13 mg/dL 7-23 GLUCOSE (test code = 6616941049) 105 mg/dL 70-110 CREATININE (test code = 5910619186) 0.96 mg/dL 0.5-1.04 CALCIUM (test code = 5722552647) 9.0 mg/dL 8.6-10.6 eGFR Calculation (Non-) (test code = 5503645599) mL/min/1.73m2 eGFR Calculation () (test code = 6799503756) mL/min/1.73m2 DUANE (test code = DUANE) Association of [...] or urine or abnormalities in imaging tests). [facility] [id number] 02:00:00* Test Item Value Reference Range Interpretation Comme nts LIPASE (test code = 1734444822) 42 U/L 0-220 Lab Interpretation (test cod e = 78486-7) Normal [facility]2020-03-14 01:50:00* Test Item Value Reference Range Interpretation Comme nts APPEARANCE (test code = 6778731598) Hazy Clear A COLOR (test code = 5626320743) Yellow Yellow PH (test code = 1094820203) 4.8-8.0 SP GRAVITY (test code = 3651702802) 1.003-1.030 GLU U QUAL (test code = 3180396750) Normal Normal BLOOD (test code = 0399827296) Negative Negative KETONES (test code = 4597625930) Negative Negative PROTEIN (test code = 2887-8) Negative Negative UROBILIN (test code = 3050081971) 2.0 mg/dL Normal A BILIRUBIN (test code = 6041084261) Negative Negative NITRITE (test code = 9936618611) Negative Negative LEUK CHANG (test code = 4163289056) Negative Negative RBC/HPF (test code = 4950877490) See_Comment [Automated [employer]] The system which generated this result transmitted reference range: 0 - 3 HPF. The reference range was not used to interpret this result as normal/abnormal. WBC/HPF (test code = 3466806181) See_Comment [Automated [employer]] The system which generated this result transmitted reference range: 0 - 5 HPF. The reference range was not used to interpret this result as normal/abnormal. BACTERIA (test code = 6157370075) Negative Negative MUCOUS (test code = 3945189898) Slight Negative LPF A SQ EPITH (test code = 6649279952) HPF Lab Interpretation (test code = 49455-6) Abnormal [facility] WITH [id number] 01:43:00* Test Item Value Reference Range Interpretation Comme nts WBC (test code = 6690-2) See_Comment [Automated messa ge] The system which generated this result transmitted reference range: 4.30 - 11.10 10*3/?L. The reference range was not used to interpret this result as normal/abnormal. RBC (test code = 789-8) See_Comment [Automated messa ge] The system which generated this result transmitted reference range: 3.93 - 5.25 10*6/?L. The reference range was not used to interpret this result as normal/abnormal. HGB (test code = 718-7) 10.4 g/dL 11.6-15 L HCT (test code = 4544-3) 34.0 % 35.7-45.2 L MCV (test code = 787-2) 82.9 fL 80.6-95.5 MCH (test code = 785-6) 25.4 pg 25.9-32.8 L MCHC (test code = 786-4) 30.6 g/dL 31.6-35.1 L RDW-SD (test code = 84607-6) 47.3 fL 39-49.9 RDW-CV (test code = 788-0) 15.7 % 12-15.5 H PLT (test code = 777-3) See_Comment H [Automated messa ge] The system which generated this result transmitted reference range: 166 - 358 10*3/?L. The reference range was not used to interpret this result as normal/abnormal. MPV (test code = 86524-8) 9.1 fL 9.5-12.9 L NRBC/100 WBC (test code = 7213594490) See_Comment [Automated SNAPCARD ssage] The system which generated this result transmitted reference range: 0.0 - 10.0 /100 WBCs. The reference range was not used to interpret this result as normal/abnormal. NRBC x10^3 (test code = 6656225480) <0.01 See_Comment [Automated messa ge] The system which generated this result transmitted reference range: 10*3/?L. The reference range was not used to interpret this result as normal/abnormal. GRAN MAT (NEUT) % (test code = 770-8) 65.6 % IMM GRAN % (test code = 3346058055) 0.60 % LYMPH % (test code = 736-9) 25.3 % MONO % (test code = 5905-5) 6.1 % EOS % (test code = 713-8) 1.8 % BASO % (test code = 706-2) 0.6 % GRAN MAT x10^3(ANC) (test code = 5702393106) 6.05 10*3/uL 1.88-7.09 IMM GRAN x10^3 (test code = 2855996269) 0.06 10*3/uL 0-0.06 LYMPH x10^3 (test code = 731-0) 2.34 10*3/uL 1.32-3.29 MONO x10^3 (test code = 742-7) 0.56 10*3/uL 0.33-0.92 EOS x10^3 (test code = 711-2) 0.17 10*3/uL 0.03-0.39 BASO x10^3 (test code = 704-7) 0.06 10*3/uL 0.01-0.07 Lab Interpretation (test code = 39126-0) Abnormal [facility], [id number] 01:35:00 * Test Item Value Reference Range Interpretation Comme nts POCT PREG (test code = 1605) negative On board controls acceptable with C Line (test code = 3574) positive POCT PREG LOT # (test code = 3575) [id number] POCT PREG TEST DATE ( test code = 3576) 02-03-2021 Lab Interpretation (test cod e = 37304-9) Normal [facility]"
[2023-10-15] MEDS ORDERED: methocarbamoL 750 MG TAB ONE (10:10)
[2023-10-15] MEDS ORDERED: KETOROLAC 30 MG/ML INJ ONE (10:11)
--- NOTE | 2023-10-15 10:41 | RAD REPORT ---
EXAM DESCRIPTION: CT - Spine Lumbar Wo Con - 10/15/2023 10:28 am CLINICAL HISTORY: Radiculopathy. LOWER BACK PAIN COMPARISON: Spine Lumbar Wo Con dated 01/19/2023 TECHNIQUE: Axial noncontrast CT imaging of the lumbar spine was performed with coronal and sagittal re-formatted images. All CT scans are performed using dose optimization technique as appropriate and may include automated exposure control or mA/KV adjustment according to patient size. FINDINGS: No acute lumbar spine fracture seen. No aggressive marrow pattern or malalignment. Paraspinal tissues are normal in thickness. No paraspinal abscess or hematoma seen. Mild posterior disc bulge lower lumbar levels. No severe canal stenosis identified IMPRESSION: No acute lumbar spine abnormality. Mild lower lumbar spondylosis.
[2023-10-15 10:42] LABS: Specific Gravity 1.028 (1.005-1.030)
--- NOTE | 2023-10-15 11:10 | ER ---
Nurse's Notes [facility] Name: Shani Valente Age: 43 yrs Sex: Female : 1980 Arrival Date: 10/15/2023 Time: 09:16 Bed 18 Private MD: Luis Enrique Arce T Diagnosis: Low back pain;Radiculopathy, lumbar region Presentation: 10/14 09:29 Chief complaint: Patient states: Low back pain that radiates to hips "right leg feels nj1 funny" for about a week, getting worse, no known injury. Has not taken any OTC medication "i take Lamictal for my seizures". Had same thing happened to her in July, has been seeing a chiropractor. 09:29 Acuity: YOBANY 3 nj 09:29 Method Of Arrival: Ambulatory nj 09:35 Coronavirus screen: Vaccine status: Patient reports receiving the 2nd dose of the covid nj1 vaccine. Ebola Screen: Patient denies travel to an Ebola-affected area in the 21 days before illness onset. Initial Sepsis Screen: Does the patient meet any 2 criteria? No. Patient's initial sepsis screen is negative. Does the patient have a suspected source of infection? No. Patient's initial sepsis screen is negative. Risk Assessment: Do you want to hurt yourself or someone else? Patient reports no desire to harm self or others. Onset of symptoms was October 2023. Historical: - Allergies: 09:37 No Known Allergies; nj1 - PMHx: 09:37 Seizures; nj1 - PSHx: 09:37 Appendectomy; nj1 - Immunization history:: Client reports receiving the 2nd dose of the Covid vaccine. - Infectious Disease History:: Denies. - Social history:: Smoking status: Patient denies any tobacco usage or history of. - History obtained from: mother. Screenin:44 [facility] ED Fall Risk Assessment (Adult) History of falling in the last 3 months, ld1 including since admission No falls in past 3 months (0 pts). Abuse screen: Denies threats or abuse. Denies injuries from another. Nutritional screening: No deficits noted. Tuberculosis screening: No symptoms or risk factors identified. Assessment: 09:42 General: Appears in no apparent distress. comfortable, Behavior is calm, cooperative, ld1 appropriate for age. Pain: Complains of pain in lumbar area and left low back Pain radiates to left leg Pain currently is 8 out of 10 on a pain scale. Quality of pain is described as radiating, throbbing, Pain began suddenly, Is continuous. Neuro: Level of Consciousness is awake, alert, obeys commands, Oriented to person, place, time, situation. Cardiovascular: Capillary refill < 3 seconds Patient's skin is warm and dry. Respiratory: Airway is patent Respiratory effort is even, unlabored. GI: Abdomen is round non-distended. : No signs and/or symptoms were reported regarding the genitourinary system. EENT: No signs and/or symptoms were reported regarding the EENT system. Derm: No signs and/or symptoms reported regarding the dermatologic system. Musculoskeletal: No signs and/or symptoms reported regarding the musculoskeletal system. 10:15 Reassessment: Patient appears in no apparent distress at this time. No changes from ld1 previously documented assessment. Patient and/or family updated on plan of care and expected duration. Pain level reassessed. Patient is alert, oriented x 3, equal unlabored respirations, skin warm/dry/pink. Patient states symptoms have not improved. Vital Signs: 09:30 BP 143 / 87; Pulse 79; Resp 18; Temp 97.7(TE); Pulse Ox 100% on R/A; Weight 108.86 kg; nj1 Height 5 ft. 9 in. ; Pain 10/10; 09:42 BP 136 / 84; Pulse 81; Resp 18; Pulse Ox 100% on R/A; ld1 10:15 BP 112 / 71; Pulse 65; Resp 18; Pulse Ox 100% on R/A; ld1 09:30 Body Mass Index 35.44 (108.86 kg, 175.26 cm) nj1 09:30 Pain Scale: Adult [facility] ED Course: 09:18 Patient arrived in ED. rg4 09:19 Luis Enrique Arce MD is Private Physician. rg4 09:36 Ayla Stanley, YAEL is Primary Nurse. ld1 09:37 Waylon Prado is Attending Physician. ci 09:37 Triage completed. nj1 09:38 Waylon Prado is Attending Physician. ci 09:38 Arm band placed on. nj1 09:44 Patient has correct armband on for positive identification. Placed in gown. Bed in low ld1 position. Call light in reach. Side rails up X2. security monitor on. Pulse ox on. NIBP on. Door closed. Noise minimized. Warm blanket given. :44 No provider procedures requiring assistance completed. ld1 10:15 Test, Urine Sent. ld1 10:26 CT Lumbar Spine Wo Con In Process Unspecified. EDMS 11:24 Patient did not have IV access during this emergency room visit. ld1 Administered Medications: 10:14 Drug: Ketorolac IM 30 mg IM once Route: IM; Site: right deltoid; ld1 10:14 Drug: Methocarbamol PO 750 mg PO once Route: PO; ld1 Medication: :44 VIS not applicable for this client. ld1 Outcome: 11:09 Discharge ordered by . ci 11:24 Discharged to home ambulatory, ld1 11:24 Condition: stable 11:24 Discharge instructions given to patient, Instructed on discharge instructions, follow up and referral plans. medication usage, Demonstrated understanding of instructions, follow-up care, medications, Prescriptions given X 2, 11:24 Patient left the ED. ld1 Signatures: Dispatcher [employer] Ryann Fuller rg4 Ayla Stanley RN RN ld1 Ruthie Villafuerte, YAEL RN nj1 Waylon Prado Corrections: (The following items were deleted from the chart) 09:35 Chief complaint: Patient states: Low back pain that radiates to hips "right leg candice feels funny" for about a week, getting worse, no known injury. Has not taken any OTC medication "i take Lamictal for my seizures". Had same thing happened to her in July, has been seeing a chiropractor. [facility] 09:35 Method Of Arrival: Ambulatory [place] [id number] : 09:35 BP 143 / 87; Pulse 79bpm; Resp 18bpm; Pulse Ox 100% RA; Temp 97.7F Temporal; tx1 108.86 kg; Height 5 ft. 9 in.; BMI: 35.4; Pain 10/10, Adult; [facility] 09:38 09:35 Acuity: YOBANY 3 [place] [address]
--- NOTE | 2023-10-15 11:10 | EDPHYS ---
Physician Documentation [facility] Name: Shani Valente Age: 43 yrs Sex: Female : 1980 Arrival Date: 10/15/2023 Time: 09:16 Bed 18 Private MD: Luis Enrique Arce T ED Physician Waylon Prado HPI: 10/14 10:35 This 43 yrs old Female presents to ER via Ambulatory with complaints of Back Pain, Leg ci Pain, Hip Pain. 10:35 Patient is a 43-year-old female with PMH epilepsy who presents with low back pain that ci began a week ago. Pain is throbbing, radiates into bilateral legs. Patient endorses tingling and numbness, worse in the left leg. Patient's mother at bedside reports that she had to restrain a special needs kid 2 months ago and hurt her knee, most likely hurt her back at the same time. Denies bowel/bladder dysfunction, no IVDU, no history of cancer. Patient reports previous episode of similar complaints that happened in July which she saw a chiropractor for.. Historical: - Allergies: 09:37 No Known Allergies; nj1 - PMHx: 09:37 Seizures; nj1 - PSHx: 09:37 Appendectomy; nj1 - Immunization history:: Client reports receiving the 2nd dose of the Covid vaccine. - Infectious Disease History:: Denies. - Social history:: Smoking status: Patient denies any tobacco usage or history of. - History obtained from: mother. ROS: 10:35 Constitutional: Negative for fever, chills, and weight loss, ci 10:35 Back: Positive for pain at rest, pain with movement, Negative for injury or acute deformity, 10:35 : Negative for urinary symptoms, difficulty urinating, bladder incontinence, Exam: 10:35 Constitutional: This is a well developed, well nourished patient who is awake, alert, ci and in no acute distress. Head/Face: Normocephalic, atraumatic. Eyes: Pupils equal round and reactive to light, extra-ocular motions intact. Lids and lashes normal. Conjunctiva and sclera are non-icteric and not injected. Cornea within normal limits. Periorbital areas with no swelling, redness, or edema. ENT: Nares patent. No nasal discharge, no septal abnormalities noted. Tympanic membranes are normal and external auditory canals are clear. Oropharynx with no redness, swelling, or masses, exudates, or evidence of obstruction, uvula midline. Mucous membranes moist. Neck: Trachea midline, no thyromegaly or masses palpated, and no cervical lymphadenopathy. Supple, full range of motion without nuchal rigidity, or vertebral point tenderness. No Meningismus. Chest/axilla: Normal chest wall appearance and motion. Nontender with no deformity. No lesions are appreciated. Cardiovascular: Regular rate and rhythm with a normal S1 and S2. No gallops, murmurs, or rubs. Normal PMI, no JVD. No pulse deficits. Respiratory: Lungs have equal breath sounds bilaterally, clear to auscultation and percussion. No rales, rhonchi or wheezes noted. No increased work of breathing, no retractions or nasal flaring. Abdomen/GI: Soft, non-tender, with normal bowel sounds. No distension or tympany. No guarding or rebound. No evidence of tenderness throughout. Skin: Warm, dry with normal turgor. Normal color with no rashes, no lesions, and no evidence of cellulitis. MS/ Extremity: Pulses equal, no cyanosis. Neurovascular intact. Full, normal range of motion. Neuro: Awake and alert, GCS 15, oriented to person, place, time, and situation. Cranial nerves II-XII grossly intact. Motor strength 5/5 in all extremities. Sensory grossly intact. Cerebellar exam normal. Normal gait. Psych: Awake, alert, with orientation to person, place and time. Behavior, mood, and affect are within normal limits. 10:35 Back: vertebral tenderness, is appreciated at L3, L4 and L5, Straight leg raises: pain bilaterally, Vital Signs: 09:30 BP 143 / 87; Pulse 79; Resp 18; Temp 97.7(TE); Pulse Ox 100% on R/A; Weight 108.86 kg; nj1 Height 5 ft. 9 in. ; Pain 10/10; 09:42 BP 136 / 84; Pulse 81; Resp 18; Pulse Ox 100% on R/A; ld1 10:15 BP 112 / 71; Pulse 65; Resp 18; Pulse Ox 100% on R/A; ld1 09:30 Body Mass Index 35.44 (108.86 kg, 175.26 cm) ky1 09:30 Pain Scale: Adult nj1 MDM: 09:37 Patient medically screened. ci 10:35 Differential diagnosis: arthritis, chronic back pain, Fracture ruptured disc, spinal ci injury, sprain. Data reviewed: vital signs, nurses notes. Historians other than the Patient: Parent: . Care significantly affected by the following chronic conditions: Seizures. ED course: Patient presents with midline low back pain. She is nontoxic-appearing, vital signs stable. This patient fall lumbar radiculopathy, sciatica, herniated disc. Will obtain CT lumbar spine, administer pain meds. Patient denies IVDU, bowel/bladder dysfunction, saddle anesthesia. Low suspicion for cauda equina, spinal hematoma/abscess.. 11:06 ED course: Patient reassessed, reports pain significantly improved, requesting referral ci to pain management. 10/14 10:03 Order name: Test, Urine; Complete Time: 10:48 ci 10/14 10:03 Order name: CT Lumbar Spine Wo Con; Complete Time: 10:48 ci 10/14 10:48 Interpretation: Per Radiologist's finding(s): IMPRESSION: No acute lumbar spine ci abnormality. Mild lower lumbar spondylosis. Administered Medications: 10:14 Drug: Ketorolac IM 30 mg IM once Route: IM; Site: right deltoid; ld1 10:14 Drug: Methocarbamol PO 750 mg PO once Route: PO; ld1 Disposition Summary: 10/15/23 11:09 Discharge Ordered Notes: Location: Home ci Condition: Stable ci Diagnosis - Low back pain ci - Radiculopathy, lumbar region ci Followup: ci - With: Private Physician - When: 2 - 3 days - Reason: Recheck today's complaints, Re-evaluation by your physician Discharge Instructions: - Discharge Summary Sheet ci - Lumbosacral Radiculopathy ci - Musculoskeletal Pain ci Forms: - Medication Reconciliation Form ci - Thank You Letter ci - Antibiotic Education ci - Prescription Opioid Use ci - Patient Portal Instructions ci - Leadership Thank You Letter ci Prescriptions: - methocarbamol 500 mg Oral tablet - take 2 tablet ORAL route every 12 hours As needed; 15 tablet; Refills: 0, ci Product Selection Permitted - Anaprox DS 550 mg Oral Tablet - take 1 tablet ORAL route every 12 hours As needed; 20 tablet; Refills: 0, ci Product Selection Permitted Signatures: Dispatcher [employer] EDMS Ayla Stanley, RN RN ld1 Ruthie Villafuerte RN RN nj1 Waylon Prado Corrections: (The following items were deleted from the chart) 10:03 10:03 Test, Urine+UC.LAB.BRZ ordered. EDMS EDMS 10:04 10:04 Spine Lumbar Wo Con+CT.RAD.BRZ ordered. EDMS EDMS
[2023-10-15 13:32] VITALS: BP 112/71; TEMP 97.7; O2SAT 100
== END 2023-10-15 11:24 | disposition home or self-care (01) ==
LOC: ER 09:16
DX: M54.16 Radiculopathy, lumbar region (principal)
CPT/HCPCS: 72131; 81025